=== PATIENT | male | born 1975 | race Caucasian/White ===

== ENCOUNTER → 2018-07-10 14:23 | Outpatient (CLI) | payer BC, SELFPAY ==
--- NOTE | 2018-07-10 14:28 | XR_ITS ---
XR chest 2V HISTORY: ITS.REASON: HX IMMUNOSUPRESSION THERAPY, STEROID THERAPY ORDERING PHYSICIAN: Guillermo Up PATIENT AGE: 42 years COMPARISON: None FINDINGS: The cardiomediastinal silhouette and pulmonary vascularity are within normal limits. The lungs are clear without infiltrates, suspicious nodules, or pleural effusions. No acute bony abnormalities. IMPRESSION: Negative chest, no acute finding
[2018-07-10 15:39] LABS: Basophils # 0.1 K/mm3 (0-0.2); Basophils % 0.6 % (0.1-2.0); Eosinophils # 0.3 K/mm3 (0.0-0.4); Eosinophils % 4.2 % (0.1-12.0); Hematocrit 46.8 % (42.0-52.0); Hemoglobin 15.7 g/dL (14.1-18.0); Lymphocytes # 2.1 K/mm3 (0.7-4.5); Lymphocytes % 29.1 % (10-50); Mean Corpuscular HGB Conc 33.6 g/dL (31.8-35.4); Mean Corpuscular Hemoglobin 28.2 pg (27.0-31.2); Mean Platelet Volume 7.4 fl (7.4-10.4); Monocytes # 0.4 K/mm3 (0.1-1.0); Monocytes % 4.8 % (1.7-9.3); Neutrophils # 4.5 K/mm3 (1.8-7.8); Neutrophils % 61.2 % (37.0-80.0); Platelet Count 303 K/mm3 (142-424); Red Blood Count 5.57 M/mm3 (4.60-6.20); Red Cell Distribution Width 12.9 % (11.5-17.5); White Blood Count 7.3 K/mm3 (4.8-10.8)
[2018-07-10 16:13] LABS: Alanine Aminotransferase 25 U/L (12-78); Albumin Level 3.7 gm/dL (3.4-5.0); Albumin/Globulin Ratio 0.9 (1.1-1.8); Alkaline Phosphatase 67 U/L (46-116); Anion Gap 12.7 mEq/L (5-15); Aspartate Amino Transferase 16 U/L (15-37); Bilirubin,Total 0.2 mg/dL (0.2-1.0); Blood Urea Nitrogen 10 mg/dL (7-18); Calcium 8.7 mg/dL (8.5-10.1); Carbon Dioxide 27 mmol/L (21.0-32.0); Chloride 105 mmol/L (98-107); Creatinine,Serum 0.88 mg/dL (0.70-1.30); Estimated Glomerular Filt Rate 95 ml/min (>60); GFR (African American) 115 ML/MIN (>60); Glucose 116 mg/dL (74-106); Potassium 3.7 mmoL/L (3.5-5.1); Sodium 141 mmol/L (136-145); Total Protein,Serum 7.7 gm/dL (6.4-8.2)
[2018-07-12 18:07] LABS: Hep A Ab, IgM Negative (Negative); Hepatitis B Core Antibody IgM Negative (Negative); Hepatitis B Surface Antigen Negative (Negative)
[2018-07-13 10:34] LABS: HIV Screen 4th Generation wRfx Non Reactive (Non Reactive); Hepatitis C Antibody <0.1 s/co ratio (0.0-0.9)
== END ==
PROVIDERS: Visit Provider Physician Assistant
DX: L40.0 Psoriasis vulgaris (principal); Z79.899 Other long term (current) drug therapy; Z92.25 Personal history of immunosuppression therapy
CPT/HCPCS: 36415; 71046; 80053; 80074; 85025; 86703; G0432

== ENCOUNTER → 2018-07-30 09:21 | Outpatient (CLI) | payer BC, SELFPAY ==
[2018-08-05 06:20] LABS: QuantiFERON-TB Gold Plus Negative (Negative)
== END ==
PROVIDERS: Visit Provider Physician Assistant
DX: L40.0 Psoriasis vulgaris (principal); Z79.899 Other long term (current) drug therapy; Z92.25 Personal history of immunosuppression therapy
CPT/HCPCS: 36415; 86480

== ENCOUNTER → 2019-07-26 16:55 | Outpatient (CLI) | payer OTHER, SELFPAY ==
--- NOTE | 2019-07-26 | XR_ITS ---
PROCEDURE: XR CHEST 2V CLINICAL HISTORY: Pretreatment for psoriasis medication COMPARISON: CXR CHEST(2 VIEWS-NOT PORTABLE) from 01/06/2014 CXR CHEST(2 VIEWS-NOT PORTABLE) from 06/02/2017 CXR2V XR chest 2V from 07/10/2018 FINDINGS: The cardiomediastinal silhouette and pulmonary vascularity are within normal limits. The lungs are clear without infiltrates, suspicious nodules, or pleural effusions. No acute bony abnormalities. IMPRESSION: No acute findings. Dictated by: Adrian Givens MD 07/27/2019 04:34 Electronically signed by Adrian Givens MD in [place] 07/27/2019 04:34
[2019-07-26 17:30] LABS: Basophils % 0.5 % (0.1-2.0); Eosinophils # 0.2 K/mm3 (0.0-0.4); Eosinophils % 2.9 % (0.1-12.0); Hematocrit 45.4 % (42.0-52.0); Hemoglobin 15.5 g/dL (14.1-18.0); Lymphocytes # 2.5 K/mm3 (0.7-4.5); Lymphocytes % 34.2 % (10-50); Mean Corpuscular HGB Conc 34.2 g/dL (31.8-35.4); Mean Corpuscular Hemoglobin 29.2 pg (27.0-31.2); Mean Corpuscular Volume 85.4 fl (80-94); Mean Platelet Volume 7.7 fl (7.4-10.4); Monocytes # 0.4 K/mm3 (0.1-1.0); Monocytes % 5.7 % (1.7-9.3); Neutrophils # 4.1 K/mm3 (1.8-7.8); Neutrophils % 56.6 % (37.0-80.0); Platelet Count 298 K/mm3 (142-424); Red Blood Count 5.32 M/mm3 (4.60-6.20); Red Cell Distribution Width 12.8 % (11.5-17.5); White Blood Count 7.2 K/mm3 (4.8-10.8)
[2019-07-26 19:25] LABS: Alanine Aminotransferase 22 U/L (12-78); Albumin Level 3.6 gm/dL (3.4-5.0); Albumin/Globulin Ratio 0.9 (1.1-1.8); Alkaline Phosphatase 69 U/L (46-116); Aspartate Amino Transferase 14 U/L (15-37); Bilirubin,Total 0.2 mg/dL (0.2-1.0); Blood Urea Nitrogen 12 mg/dL (7-18); Calcium 8.6 mg/dL (8.5-10.1); Carbon Dioxide 29 mmol/L (21.0-32.0); Chloride 103 mmol/L (98-107); Creatinine,Serum 0.86 mg/dL (0.70-1.30); Estimated Glomerular Filt Rate 98 ml/min (>60); GFR (African American) 118 ML/MIN (>60); Glucose 80 mg/dL (74-106); Sodium 141 mmol/L (136-145); Total Protein,Serum 7.6 gm/dL (6.4-8.2)
[2019-07-29 21:37] LABS: QuantiFERON-TB Gold Plus NEGATIVE
== END ==
PROVIDERS: Visit Provider Physician Assistant
DX: L40.0 Psoriasis vulgaris (principal)
CPT/HCPCS: 36415; 71046; 80053; 85025; 86480

== ENCOUNTER 2019-12-23 17:33 | Emergency (ER) | payer OTHER, SELFPAY ==
[2019-12-23 17:48] VITALS: BP 128/76; PULSE 110; RESP 20; TEMP 36.8; O2SAT 98; BMI 30.4
--- NOTE | 2019-12-23 17:55 | HMH.EDUTC ---
[facility] [place] Impression: Strep throat Disposition: Home, Self-Care Condition on Discharge: Good Instructions: Strep Throat, DI for Strep Throat Additional Instructions: Drink plenty of fluids. Take tylenol or ibuprofen for pain or fever. Take the medications as directed. Throw your tooth brush away and get a new one tomorrow. Follow up with your regular doctor. GO TO THE ER FOR ANY WORSENING SYMPTOMS Prescriptions: predniSONE [Deltasone 10mg tablet] 10 mg PO BID 3 Days #6 tab Transmission Status: Received by [employer] [id number] Referrals: Provider,Referral, [Primary Care Provider] - Time of Disposition: 18:05 Medical Decision Making - Medical Records Medical records reviewed: No: I reviewed the patient's medical records. - Gato Inquiry Pt receiving controlled substance: No Vital Signs: 12/23/19 17:48 12/23/19 18:20 Temperature 98.3 F 98.3 F Temperature Source Oral Pulse Rate 110 H Pulse Rate [Right Radial] 110 H Respiratory Rate 20 20 Blood Pressure 128/76 Blood Pressure [Right Arm] 128/76 Blood Pressure Mean [Right Arm] 93 Blood Pressure Source [Right Arm] Automatic Cuff Blood Pressure Position [Right Arm] Supine 02 Sat by Pulse Oximetry 98 Oxygen Delivery Method Room Air - Lab Data Lab results reviewed: Yes: I reviewed the patient's lab results. Lab Results 12/23/19 17:55: Influenza Type A Ag Negative, Influenza Type B Ag Negative 12/23/19 17:55: Strep Scn Rapid [facility] Positive A Orders (Tests/Meds): ED MEDICATIONS Discontinued Medications Generic Name Dose Route Start Last Admin Trade Name Freq PRN Reason Stop Dose Admin Penicillin G Benzathine 1,200,000 unit 12/23/19 18:01 12/23/19 18:10 Bicillin La 1,200,000 Units/2ml Syringe IM 12/23/19 18:02 1,200,000 unit ONCE ONE Administration Protocol [facility] - General Stated complaint: sore throat, pain Time Seen by Provider: 12/23/19 17:55 Mode of Arrival: Ambulatory Source of Information: Patient Limitations: No Limitations Description of Symptoms (Recalled from Triage Doc. by RN): PT C/O SORE THROAT AND CHILLS X1 DAY HEENT Symptoms (Recalled from RN notes): Yes (SORE THROAT, CHILLS) Resp Symptoms (Recalled from RN notes): No Skin Symptoms (Recalled from RN notes): No MS Symptoms (Recalled from RN notes): No Functional Status (Recalled from RN notes): N/A - History of Present Illness Provider Complaint: He c/o sore throat for the past 1 day. He has also been running a fever and chilling. He has not been coughing of having any congestion. - Related Data Previous Rx's Medication Instructions Recorded predniSONE [Deltasone 10mg tablet] 10 mg PO BID 3 Days #6 tab 12/23/19 Allergies Allergy/AdvReac Type Severity Reaction Status Date / Time No Known Allergies Allergy Unverified 07/29/17 14:31 - Worker's Comp Is this a Worker's Comp case?: No [facility] History - Hepatitis A Screen Drug use history?: No High risk sexual behaviors?: No History of sexually transmitted infection?: No Currently employed?: No Childcare worker?: No Do you have indoor plumbing?: Yes Do you have electricity?: Yes Attestation statement:: This patient has been screened for Hepatitis A risk factors. I have reviewed the patient's past medical history: Yes Medical History: Denies:: Diabetes Mellitus Type 1, Diabetes Mellitus Type 2 - Social History Smoking Status: Never smoker Alcohol Intake: never Occupational Status: employed ROS Obtained: Yes All systems reviewed & no additional complaints - Constitutional Constitutional: Reports chills, Reports fever(s), Reports poor appetite, Reports malaise - Eyes Eyes: Denies eye discharge - ENT Ears, Nose, Mouth, and Throat: Reports as per HPI - Cardiovascular Cardiovascular: Denies chest pain - Respiratory Respiratory: No chest congestion, No cough, No dyspnea, No coughing up blood, No stridor, No wheezing
[2019-12-23 18:12] LABS: UTC Strep Screen (Rapid) Positive (Negative)
[2019-12-23 18:14] LABS: UTC Influenza A Antigen Negative (Negative); UTC Influenza B Antigen Negative (Negative)
[2019-12-23 18:20] VITALS: BP 128/76; PULSE 110; RESP 20; TEMP 36.8; O2SAT 98
== END 2019-12-23 18:21 | disposition home or self-care (01) ==
PROVIDERS: Emergency Provider Nurse Practitioner Family
DX: J02.0 Streptococcal pharyngitis (principal)
CPT/HCPCS: 87804; 87880; 96372; 99202; J0561

== ENCOUNTER → 2020-03-23 15:10 | Outpatient (CLI) | payer OTHER, SELFPAY ==
[2020-03-23 15:57] LABS: Basophils % 0.4 % (0.1-2.0); Eosinophils # 0.2 K/mm3 (0.0-0.4); Eosinophils % 1.9 % (0.1-12.0); Hematocrit 43.8 % (42.0-52.0); Hemoglobin 15.1 g/dL (14.1-18.0); Lymphocytes # 2.2 K/mm3 (0.7-4.5); Lymphocytes % 22.2 % (10-50); Mean Corpuscular HGB Conc 34.5 g/dL (31.8-35.4); Mean Corpuscular Hemoglobin 29.5 pg (27.0-31.2); Mean Corpuscular Volume 85.4 fl (80-94); Mean Platelet Volume 7.7 fl (7.4-10.4); Monocytes # 0.5 K/mm3 (0.1-1.0); Monocytes % 4.9 % (1.7-9.3); Neutrophils # 6.9 K/mm3 (1.8-7.8); Neutrophils % 70.6 % (37.0-80.0); Platelet Count 302 K/mm3 (142-424); Red Blood Count 5.13 M/mm3 (4.60-6.20); Red Cell Distribution Width 13.5 % (11.5-17.5); White Blood Count 9.8 K/mm3 (4.8-10.8)
[2020-03-23 16:22] LABS: Chloride 108 mmol/L (98-107); Potassium 3.9 mmoL/L (3.5-5.1); Sodium 142 mmol/L (136-145)
[2020-03-23 16:25] LABS: Alanine Aminotransferase 22 U/L (12-78); Albumin Level 4.2 g/dl (3.5-5.0); Albumin/Globulin Ratio 1.3 (1.1-1.8); Alkaline Phosphatase 59 U/L (38-126); Anion Gap 14.9 mEq/L (5-15); Aspartate Amino Transferase 26 U/L (17-59); Bilirubin,Total 0.5 mg/dl (0.2-1.3); Blood Urea Nitrogen 12 mg/dl (9-20); Calcium 9.8 mg/dl (8.4-10.2); Carbon Dioxide 23 mmol/L (22.0-30.0); Estimated Glomerular Filt Rate 106 ml/min (>60); GFR (African American) 128 ML/MIN (>60); Globulin 3.3 g/dL (1.3-3.2); Glucose 125 mg/dl (74-100); Total Protein,Serum 7.5 g/dl (6.3-8.2)
== END ==
PROVIDERS: Visit Provider Physician Assistant
DX: L40.0 Psoriasis vulgaris (principal); L40.4 Guttate psoriasis; Z79.899 Other long term (current) drug therapy
CPT/HCPCS: 36415; 80053; 85025

== ENCOUNTER → 2020-10-16 08:21 | Outpatient (CLI) | payer OTHER, SELFPAY ==
[2020-10-16 08:46] LABS: Basophils % 0.6 % (0.1-2.0); Eosinophils # 0.3 K/mm3 (0.0-0.4); Eosinophils % 4.2 % (0.1-12.0); Hematocrit 46.7 % (42.0-52.0); Hemoglobin 15.6 g/dL (14.1-18.0); Lymphocytes # 2.5 K/mm3 (0.7-4.5); Lymphocytes % 34.1 % (10-50); Mean Corpuscular HGB Conc 33.3 g/dL (31.8-35.4); Mean Corpuscular Hemoglobin 28.5 pg (27.0-31.2); Mean Corpuscular Volume 85.5 fl (80-94); Mean Platelet Volume 7.5 fl (7.4-10.4); Monocytes # 0.4 K/mm3 (0.1-1.0); Monocytes % 4.9 % (1.7-9.3); Neutrophils # 4.1 K/mm3 (1.8-7.8); Neutrophils % 56.2 % (37.0-80.0); Platelet Count 284 K/mm3 (142-424); Red Blood Count 5.47 M/mm3 (4.60-6.20); Red Cell Distribution Width 13.3 % (11.5-17.5); White Blood Count 7.4 K/mm3 (4.8-10.8)
[2020-10-16 09:09] LABS: Chloride 108 mmol/L (98-107); Potassium 4.1 mmoL/L (3.5-5.1); Sodium 141 mmol/L (136-145)
[2020-10-16 09:12] LABS: Alanine Aminotransferase 22 U/L (12-78); Albumin Level 4.3 g/dl (3.5-5.0); Albumin/Globulin Ratio 1.3 (1.1-1.8); Alkaline Phosphatase 72 U/L (38-126); Anion Gap 12.1 mEq/L (5-15); Aspartate Amino Transferase 24 U/L (17-59); Bilirubin,Total 0.4 mg/dl (0.2-1.3); Blood Urea Nitrogen 12 mg/dl (9-20); Carbon Dioxide 25 mmol/L (22.0-30.0); Estimated Glomerular Filt Rate 106 ml/min (>60); GFR (African American) 128 ML/MIN (>60); Globulin 3.4 g/dL (1.3-3.2); Total Protein,Serum 7.7 g/dl (6.3-8.2)
[2020-10-16 09:13] LABS: Calcium 9.6 mg/dl (8.4-10.2); Glucose 109 mg/dl (74-100)
[2020-10-21 08:50] LABS: QuantiFERON-TB Gold Plus Negative (Negative)
== END ==
PROVIDERS: Visit Provider Physician Assistant
DX: L40.0 Psoriasis vulgaris (principal); Z79.899 Other long term (current) drug therapy
CPT/HCPCS: 36415; 80053; 85025; 86480

== ENCOUNTER 2021-03-13 12:15 | Emergency (ER) | payer OTHER, SELFPAY ==
[2021-03-13 12:16] VITALS: BP 162/101; PULSE 134; RESP 20; TEMP 38.2; O2SAT 95; BMI 29.9
--- NOTE | 2021-03-13 12:39 | HMH.EDUTC ---
[facility] – [place] Disposition Clinical Impression: Fever Qualifiers: Fever type: unspecified Qualified Code(s): R50.9 - Fever, unspecified Disposition: Home, Self-Care Condition on Discharge: Good Instructions: DI for Dehydration -- Adult, DI for Viral Syndrome, DI for Fever (Symptom) -- Adult Additional Instructions: Make sure that you are drinking plenty of fluids to keep yourself hydrated especially if you are working out in the sun and having fever Make sure to follow up with your Family Doctor for good work up and monitoring of you blood pressure and recheck Return if needed Straight to ER if any life threatening symptoms You were tested for today for COVID19 your test result should be back in the next 24-48 hours, you may call to the [facility] to see if your test results are back in the next 48 hours [phone] [facility] hours are 9am-9pm You was given a handout with instructions for Self Quarantine and Self isolation for while you wait on test results and what to do if they are positive If you are positive the Health Dept will be contacting you also Referrals: Blaine Abreu MD [Primary Care Provider] - As needed Forms: Work/School Release Medical Decision Making - Gato Inquiry Pt receiving controlled substance: No Gato was queried for this patient: No Vital Signs: 03/13/21 12:16 03/13/21 14:21 03/13/21 14:54 Temperature 100.7 F H 99.1 F 99.1 F Temperature Source Tympanic Tympanic Oral Pulse Rate 96 H Pulse Rate [Apical] 134 H 96 H Respiratory Rate 20 16 19 Blood Pressure 140/82 Blood Pressure [Right Arm] 162/101 H 140/82 Blood Pressure Mean [Right Arm] 121 101 Blood Pressure Source Automatic Cuff Blood Pressure Source [Right Arm] Automatic Cuff Automatic Cuff Blood Pressure Position Sitting Blood Pressure Position [Right Arm] Sitting Sitting 02 Sat by Pulse Oximetry 95 99 Oxygen Delivery Method Room Air Room Air Room Air Orders (Tests/Meds): ED MEDICATIONS Discontinued Medications Generic Name Dose Route Start Last Admin Trade Name Freq PRN Reason Stop Dose Admin Acetaminophen 650 mg 03/13/21 12:48 03/13/21 12:58 Acetaminophen 325mg Tab PO 03/13/21 12:49 650 mg ONCE ONE Administration Sodium Chloride 1,000 mls @ 999 mls/hr 03/13/21 12:45 03/13/21 12:58 Sod Chlor 0.9% 1000ml Bag IV 03/13/21 13:45 999 mls/hr .Q1H1M LENNIE Administration ORDERS Category Date Time Status Covid-19 Nasal PCR ([facility]) Routine Lab 03/13/21 11:25 Received Medical Decision Narrative: Discussed with patient and recommended transfer to the ED due to HR and blood pressure elevated and patient declined at this time States that he is not having any dizziness. denies headache and denies CP State that his mouth feels dry and he wanted to get checked for COVID Patient agreeable to getting IV fluids Patient states that he is feeling much better after fluids States that mouth no longer is feeling dry HR now [address] [facility] HPI - General Stated complaint: weakness Time Seen by Provider: 03/13/21 12:39 Mode of Arrival: Ambulatory Source of Information: Patient Limitations: No Limitations Description of Symptoms (Recalled from Triage Doc. by RN): dizziness, chills HEENT Symptoms (Recalled from RN notes): No Resp Symptoms (Recalled from RN notes): No Skin Symptoms (Recalled from RN notes): No MS Symptoms (Recalled from RN notes): No Functional Status (Recalled from RN notes): na - History of Present Illness Provider Complaint: Patient state that he worked out in the sun all weekend and thinks he got dehydrated States that he has been having a low grade fever, chills and body aches States that he has not been around anyone with COVID that he is aware of States that today he noticed he was still feeling achy and having chills while out in the sun and he wanted to come in and get checked - Related Data Previous Rx's Medication Instructions Recorded predniSONE [Deltasone 10mg tablet] 10 mg PO BID 3 Days #6
[2021-03-13 14:21] VITALS: BP 140/82; PULSE 96; RESP 16; TEMP 37.3; O2SAT 99
[2021-03-13 14:54] VITALS: BP 140/82; PULSE 96; RESP 19; TEMP 37.3; O2SAT 99
== END 2021-03-13 14:56 | disposition home or self-care (01) ==
PROVIDERS: Emergency Provider Nurse Practitioner; PCP Family Medicine
DX: U07.1 COVID-19 (principal)
CPT/HCPCS: 96365; 99202; G0463; U0003

== ENCOUNTER 2021-03-17 17:53 | Inpatient (IN) | payer OTHER, SELFPAY ==
[2021-03-17] VITALS (8 sets, daily range): BP systolic 107–163; BP diastolic 61–96; PULSE 81–140; RESP 16–42; TEMP 37–39.4; O2SAT 86–95; BMI 29.9
--- NOTE | 2021-03-17 | ECG_ITS ---
APPROVED REPORT Exam: Resting ECG HR:115 bpm ECG Measurements Heart Rate 115 AXES IL 148 P 38 QRSd 90 QRS 11 QT 316 T 44 QTc 437 Conclusion Sinus tachycardia Otherwise normal ECG Electronically signed by : Claude Minor MD 03/18/2021 08:46:15
--- NOTE | 2021-03-17 18:09 | XR_ITS ---
PROCEDURE INFORMATION: Exam: XR Chest Exam date and time: 03/17/2021 6:09 PM Age: 45 years old Clinical indication: Dyspnea and shortness of breath and other: Covid positive chest pain; Additional info: Dyspnea, covid+, cp TECHNIQUE: Imaging protocol: XR of the chest. Views: 1 view. COMPARISON: CR XR CHEST 2V 07/26/2019 5:09 PM FINDINGS: Airway: Patent Lungs: Bilateral perihilar haziness and streaky-like opacities. Mild segmental bronchial wall thickening. Bilateral perihilar and mid to basal predominant ground-glass and patchy airspace opacifications. Pleural spaces: Unremarkable. No pleural effusion. No pneumothorax. Heart/Mediastinum: Unremarkable. No cardiomegaly. Bones/joints: No acute skeletal abnormality or aggressive osseous lesion. IMPRESSION: Findings most compatible with bilateral moderate COVID-19 pneumonia in this patient with a positive history.
--- NOTE | 2021-03-17 18:10 | HMH.EDSOB ---
ED Disposition Clinical Impression: COVID-19 in immunocompromised patient, Pneumonia due to 2019 novel coronavirus, Hypoxia Disposition: Admitted as Observation Condition on Discharge: Serious Referrals: Blaine Abreu MD [Primary Care Provider] - - Critical Care Critical Care Time: No Attestation: On 03/17/21, the high probability of a clinically significant, sudden or life threatening deterioration of the following system(s) required my full and direct attention, intervention and personal management. The time I documented below is in addition to time spent performing reported procedures but includes the following listed in this critical care notation. Medical Decision Making - Medical Records Medical records reviewed: Yes: I reviewed the patient's medical records. - Gato Inquiry Pt receiving controlled substance: No Vital Signs: 03/17/21 17:53 03/17/21 17:54 03/17/21 18:00 Temperature 103 F H Temperature Source Oral Pulse Rate 140 H Pulse Rate [Radial] 139 H Respiratory Rate 42 H Blood Pressure 163/94 H Blood Pressure [Right Arm] 161/94 H Blood Pressure Mean [Right Arm] 116 Blood Pressure Position [Right Arm] Sitting 02 Sat by Pulse Oximetry 86 L 92 L 88 L Oxygen Delivery Method Room Air Nasal Cannula Room Air Oxygen Flow Rate (LPM) 6 03/17/21 18:30 Temperature Temperature Source Pulse Rate 122 H Pulse Rate [Radial] Respiratory Rate 36 H Blood Pressure 156/96 H Blood Pressure [Right Arm] Blood Pressure Mean [Right Arm] Blood Pressure Position [Right Arm] 02 Sat by Pulse Oximetry 95 Oxygen Delivery Method Nasal Cannula Oxygen Flow Rate (LPM) 6 - Lab Data Lab results reviewed: Yes: I reviewed the patient's lab results. Lab Results 03/17/21 18:16: WBC 6.2, RBC 5.47, Hgb 15.5, Hct 45.1, MCV 82.5, MCH 28.4, MCHC 34.4, RDW 13.6, Plt Count 187, MPV 8.3, Neut % (Auto) 86.9 H, Lymph % (Auto) 9.3 L, [place] % (Auto) 3.2, Eos % (Auto) 0.1, Baso % (Auto) 0.5, Neut # (Auto) 5.3, Lymph # (Auto) 0.6 L, [place] # (Auto) 0.2, Eos # (Auto) 0.0, Baso # (Auto) 0.0, Total Counted 100, Neutrophils % (Manual) 85 H, Lymphocytes % (Manual) 8 L, Monocytes % (Manual) 5, Eosinophils % (Manual) 2, Platelet Estimate Normal, RBC Morphology Normal 03/17/21 18:16: Sodium 137, Potassium 4.1, Chloride 104, Carbon Dioxide 25, Anion Gap 12.1, BUN 15, Creatinine 0.90, Estimated Creat Clear 140, Estimated GFR 92, Est GFR ( Amer) 111, Glucose 129 H, Calcium 8.5, Total Bilirubin 0.4, AST 53, ALT 24, Alkaline Phosphatase 64, NT-Pro-B Natriuret Pep < 11.1, Total Protein 7.6, Albumin 3.9, Globulin 3.7 H, Albumin/Globulin Ratio 1.1 03/17/21 18:16: Lactate 1.6 Result diagrams: 03/17/21 18:16 03/17/21 18:16 Orders (Tests/Meds): ED MEDICATIONS Generic Name Dose Route Start Last Admin Trade Name Freq PRN Reason Stop Dose Admin Sodium Chloride 1,000 mls @ 999 mls/hr 03/17/21 18:30 03/17/21 18:39 Sod Chlor 0.9% 1000ml Bag IV 03/17/21 19:30 999 mls/hr .Q1H1M LENNIE Administration Discontinued Medications Generic Name Dose Route Start Last Admin Trade Name Freq PRN Reason Stop Dose Admin Acetaminophen 1,000 mg 03/17/21 18:22 03/17/21 18:39 Acetaminophen 500mg Tab PO 03/17/21 18:23 1,000 mg ONCE ONE Administration Dexamethasone Sodium Phosphate 8 mg 03/17/21 18:08 03/17/21 18:20 Dexamethasone 4mg/Ml 1ml Vial IV 03/17/21 18:09 8 mg ONCE ONE Administration ORDERS Category Date Time Status Blood Culture Stat Micro 03/17/21 18:16 Received - Radiology Data #1 Image(s): Chest Image Reviewed: Yes I reviewed the patient's radiology results, Yes I reviewed the patient's radiology image, Yes I have reviewed radiologist's interpretation Preliminary Findings: Abnormal (Infiltrates consistent with COVID-19 pneumonia) - ECG Data Tracing #1 I reviewed this ECG and interpreted as documented below: Patient is ECG was done at 1909. It shows a sinus tachycar
[2021-03-17 18:27] LABS: Basophils % 0.5 % (0.1-2.0); Eosinophils % 0.1 % (0.1-12.0); Hematocrit 45.1 % (42.0-52.0); Hemoglobin 15.5 g/dL (14.1-18.0); Lymphocytes # 0.6 K/mm3 (0.7-4.5); Lymphocytes % 9.3 % (10-50); Mean Corpuscular HGB Conc 34.4 g/dL (31.8-35.4); Mean Corpuscular Hemoglobin 28.4 pg (27.0-31.2); Mean Corpuscular Volume 82.5 fl (80-94); Mean Platelet Volume 8.3 fl (7.4-10.4); Monocytes # 0.2 K/mm3 (0.1-1.0); Monocytes % 3.2 % (1.7-9.3); Neutrophils # 5.3 K/mm3 (1.8-7.8); Neutrophils % 86.9 % (37.0-80.0); Platelet Count 187 K/mm3 (142-424); Red Blood Count 5.47 M/mm3 (4.60-6.20); Red Cell Distribution Width 13.6 % (11.5-17.5); White Blood Count 6.2 K/mm3 (4.8-10.8)
[2021-03-17 18:30] LABS: MANUAL DIFFERENTIAL MANUAL DIFFERENTIAL (MANUAL DIFF)
[2021-03-17 18:39] LABS: Chloride 104 mmol/L (98-107); Potassium 4.1 mmoL/L (3.5-5.1); Sodium 137 mmol/L (136-145)
[2021-03-17 18:42] LABS: Alanine Aminotransferase 24 U/L (12-78); Albumin Level 3.9 g/dl (3.5-5.0); Albumin/Globulin Ratio 1.1 (1.1-1.8); Alkaline Phosphatase 64 U/L (38-126); Anion Gap 12.1 mEq/L (5-15); Aspartate Amino Transferase 53 U/L (17-59); Bilirubin,Total 0.4 mg/dl (0.2-1.3); Blood Urea Nitrogen 15 mg/dl (9-20); Calcium 8.5 mg/dl (8.4-10.2); Carbon Dioxide 25 mmol/L (22.0-30.0); Creatinine Clearance Estimated 140 mL/min (50-200); Estimated Glomerular Filt Rate 92 ml/min (>60); GFR (African American) 111 ML/MIN (>60); Globulin 3.7 g/dL (1.3-3.2); Glucose 129 mg/dl (74-100); Total Protein,Serum 7.6 g/dl (6.3-8.2)
[2021-03-17 18:43] LABS: Lactic Acid 1.6 mmol/L (0.7-2.1)
[2021-03-17 18:53] LABS: Eosinophils % 2 % (0-3); Lymphocytes % 8 % (10-50); Monocytes % 5 % (2-9); Neutrophils % 85 % (42-76); Platelet Estimate Normal; RBC Morphology Normal; Total Cells Counted 100
[2021-03-17 18:54] LABS: NT Pro Brain Natriuretic Pep. < 11.1 pg/mL (0-125)
--- NOTE | 2021-03-17 18:54 | PC.NURSE ---
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
[2021-03-17 21:41] LABS: Chloride 106 mmol/L (98-107); Potassium 4.1 mmoL/L (3.5-5.1); Sodium 136 mmol/L (136-145)
[2021-03-17 21:43] LABS: Blood Urea Nitrogen 13 mg/dl (9-20); Creatinine Clearance Estimated 158 mL/min (50-200); Estimated Glomerular Filt Rate 105 ml/min (>60); GFR (African American) 127 ML/MIN (>60)
[2021-03-17 21:44] LABS: Alanine Aminotransferase 22 U/L (12-78); Albumin Level 3.6 g/dl (3.5-5.0); Alkaline Phosphatase 63 U/L (38-126); Anion Gap 11.1 mEq/L (5-15); Aspartate Amino Transferase 51 U/L (17-59); Bilirubin,Total 0.4 mg/dl (0.2-1.3); Calcium 8.2 mg/dl (8.4-10.2); Carbon Dioxide 23 mmol/L (22.0-30.0); Globulin 3.6 g/dL (1.3-3.2); Glucose 133 mg/dl (74-100); Total Protein,Serum 7.2 g/dl (6.3-8.2)
[2021-03-18] VITALS (7 sets, daily range): BP systolic 131–167; BP diastolic 73–100; PULSE 78–110; RESP 20–24; TEMP 36.7–37.4; O2SAT 90–95; BMI 26.9
--- NOTE | 2021-03-18 03:54 | PC.NURSE ---
Pt arrived to floor on 6L O2 NC. Pt is currently on 3.5 L O2 NC with O2 sats of low to mid 90s. Pt has nonproductive cough. Denies any sob at this time. BS active. Pt states he has had diarrhea last 24hrs. None this shift. Was noted to be diaphoretic x1 this shift. He is currently afebrile at this time. BP is elevated. Pt states he doesn't have any history of HTN. Medications administered per mar/orders. Spoke with MD early in shift. New orders received. Will continue to monitor.
--- NOTE | 2021-03-18 08:02 | HMH.HP ---
*Admission Date: 03/17/21 *Chief complaint: Shortness of breath *History of present illness: 45 year old male who I saw one time in the office in early 2018, presented to [facility] ER yesterday with worsening shortness of breath and fever. Patient has been ill for about 9 days now and was diagnosed with Covid-19 on 03/13/[address] [facility] UTC. He states over the past week he has had problems with fever, headache, shortness of breath and non productive cough. He has not had a Covid-19 vaccination. He takes Skyrizi for psoriasis and his last dose was on 03/08/21. [facility] History Medical History: Denies:: Cancer, Chronic Obstructive Pulmonary Disease (COPD), Coronary Artery Disease, Diabetes Mellitus Type 1, Diabetes Mellitus Type 2, MRSA *Have you ever received a pneumonia vaccine?: No *Have you received a flu vaccine this season?: No Other Medical History: Reports: Other (Psoriasis) Other Surgeries: Yes: No Previous Surgery Amputation: No Fractures: Yes ((R) wrist) - *Social History Smoking Status: Never smoker Alcohol Intake: never *Occupational Status:: employed *Travel in the last 8 weeks: None Family Hx:: No significant family history Review of Systems - Constitutional Reports chills, Reports fever(s) - Eyes Denies blurry vision - ENT Denies nosebleed - *Cardiovascular Denies chest pain - *Respiratory Reports cough - *Gastrointestinal Denies abdominal pain - *Genitourinary Denies difficulty urinating - *Musculoskeletal Denies joint pain - Integumentary/Breasts Denies yellowing of the skin - *Neurologic Reports headache(s) - Psychiatric Denies anxiety Meds Home Medications Medication Instructions Recorded Confirmed Type Risankizumab-Rzaa [Skyrizi (2 150 mg SQ DIRECTED 03/17/21 03/17/21 History Syringes) Kit] Allergies Allergy/AdvReac Type Severity Reaction Status Date / Time No Known Allergies Allergy Unverified 07/29/17 14:31 Exam Vital signs and Labs for Last 24 Hours: Temp Pulse Resp BP Pulse Ox 98.7 F 92 H 24 149/99 H 91 L 03/18/21 07:53 03/18/21 07:53 03/18/21 07:53 03/18/21 07:53 03/18/21 07:53 Laboratory Results - last 24 hr 03/17/21 18:16: WBC 6.2, RBC 5.47, Hgb 15.5, Hct 45.1, MCV 82.5, MCH 28.4, MCHC 34.4, RDW 13.6, Plt Count 187, MPV 8.3, Neut % (Auto) 86.9 H, Lymph % (Auto) 9.3 L, [place] % (Auto) 3.2, Eos % (Auto) 0.1, Baso % (Auto) 0.5, Neut # (Auto) 5.3, Lymph # (Auto) 0.6 L, [place] # (Auto) 0.2, Eos # (Auto) 0.0, Baso # (Auto) 0.0, Total Counted 100, Neutrophils % (Manual) 85 H, Lymphocytes % (Manual) 8 L, Monocytes % (Manual) 5, Eosinophils % (Manual) 2, Platelet Estimate Normal, RBC Morphology Normal 03/17/21 18:16: Sodium 137, Potassium 4.1, Chloride 104, Carbon Dioxide 25, Anion Gap 12.1, BUN 15, Creatinine 0.90, Estimated Creat Clear 140, Estimated GFR 92, Est GFR ( Amer) 111, Glucose 129 H, Calcium 8.5, Total Bilirubin 0.4, AST 53, ALT 24, Alkaline Phosphatase 64, NT-Pro-B Natriuret Pep < 11.1, Total Protein 7.6, Albumin 3.9, Globulin 3.7 H, Albumin/Globulin Ratio 1.1 03/17/21 18:16: Lactate 1.6 03/17/21 21:32: Sodium 136, Potassium 4.1, Chloride 106, Carbon Dioxide 23, Anion Gap 11.1, BUN 13, Creatinine 0.80, Estimated Creat Clear 158, Estimated GFR 105, Est GFR ( Amer) 127, Glucose 133 H, Calcium 8.2 L, Total Bilirubin 0.4, AST 51, ALT 22, Alkaline Phosphatase 63, Total Protein 7.2, Albumin 3.6, Globulin 3.6 H, Albumin/Globulin Ratio 1.0 L Vital Signs - 24 hr 03/17/21 17:53 03/17/21 17:54 03/17/21 18:00 Temperature 103 F H Pulse Rate 140 H Pulse Rate [Radial] 139 H Respiratory Rate 42 H Blood Pressure 163/94 H Blood Pressure [Right Arm] 161/94 H 02 Sat by Pulse Oximetry 86 L 92 L 88 L 03/17/21 18:30 03/17/21 19:50 03/17/21 20:00 Temperature 101.7 F H 99.8 F H Pulse Rate 122 H 102 H Pulse Rate [Radial] 101 H Respiratory Rate 36 H 36 H 16 Blood Pressure 156/96 H 107/61 L Blood Pressure [Right Arm] 128/76 02 S
--- NOTE | 2021-03-18 09:21 | P.CONPHA_ITS ---
[facility] Pharmacy VTE Monitoring - Patient Demographics Admission date: 03/17/21 Report Date: 03/18/21 Time: 09:21 Allergies/Adverse Reactions: Patient Allergies No Known Allergies Allergy (Unverified 07/29/17 14:31) Height: 1.78 m Weight: 85.304 kg Patient Problems: Current Active Problems Fever (Acute) COVID-19 in immunocompromised patient (Acute) Pneumonia due to 2019 novel coronavirus (Acute) Hypoxia (Acute) Psoriasis (Acute) - VTE Risk Labs: VTE Related Lab Results Hgb 15.5 g/dL (14.1-18.0) 03/17/21 18:16 Hct 45.1 % (42.0-52.0) 03/17/21 18:16 Plt Count 187 K/mm3 (142-424) 03/17/21 18:16 BUN 13 mg/dl (9-20) 03/17/21 21:32 Creatinine 0.80 mg/dl (0.66-1.25) 03/17/21 21:32 Estimated Creat Clear 158 mL/min (50-200) 03/17/21 21:32 Was VTE Risk Assessment Performed: Yes VTE Risk Level: Moderate Risk - Prophylaxis VTE Prophylaxis Ordered?: Yes Types of VTE Prophylaxis: TEDS Knee High Location of Applied Device: Bilateral Lower Extremeties Pharmacologic Type: Enoxaparin
--- NOTE | 2021-03-18 09:21 | HMH.PHAINT ---
MEDICATION RECONCILIATION COMPLETE USING EXTERNAL PHARMACY FILL HISTORY.
--- NOTE | 2021-03-18 10:00 | PC.NURSE ---
PT IS RESTING IN BED. NO COMPLAINTS OF DISCOMFORT. PT STATES HE ONLY FEELS SOA WHEN HE COUGHS. PT STATES HE HAS NOT HAD MUCH OF AN APPETITE FOR SEVERAL DAYS BUT HAS BEEN DRINKING OKAY. LUNG SOUNDS HAVE BILATERAL CRACKLES. ABDOMEN SOFT/NON TENDER WITH ACTIVE BOWEL SOUNDS. NO SWELLING NOTED TO BLE. USING THE URINAL TO VOID. IV ACCESS NOTED TO LAC INFUSING NS @ 100. O2 SATURATION MAINTAINING 92-94% ON 3.5 L NC. WILL CONTINUE TO MONITOR.
--- NOTE | 2021-03-18 21:39 | PC.NURSE ---
notified of HTN. Pt asymptomatic at this time. No new orders.
[2021-03-19] VITALS (11 sets, daily range): BP systolic 140–160; BP diastolic 90–101; PULSE 89–103; RESP 19–24; TEMP 36.4–37.4; O2SAT 89–94; BMI 27.0; BMI 27.1
--- NOTE | 2021-03-19 03:14 | PC.NURSE ---
Pt has slept at intervals this shift. Productive cough noted this AM. Pt stated he has coughed up stuff twice. During coughing episodes, pt noted to desat low to mid 80s. Recovery slow at times. Lungs noted to have crackles t/o bilateral bases. O2 was titrated from 3.5 L to 4L O2 NC this AM. Pt encouraged to sleep in prone position this AM. After pt repositioning, O2 sats have improved and is currently 93%. Will continue to monitor.
--- NOTE | 2021-03-19 05:46 | PC.NURSE ---
Pt remains on 4L O2 NC at this time. AM labs obtained. Pt placed back in prone position. O2 sats currently 91-92%
[2021-03-19 06:08] LABS: Chloride 109 mmol/L (98-107)
[2021-03-19 06:09] LABS: Sodium 139 mmol/L (136-145)
[2021-03-19 06:11] LABS: Alanine Aminotransferase 30 U/L (12-78); Aspartate Amino Transferase 52 U/L (17-59); Blood Urea Nitrogen 14 mg/dl (9-20); Creatinine Clearance Estimated 191 mL/min (50-200); Estimated Glomerular Filt Rate 146 ml/min (>60); GFR (African American) 177 ML/MIN (>60)
[2021-03-19 06:12] LABS: Albumin Level 3.3 g/dl (3.5-5.0); Alkaline Phosphatase 57 U/L (38-126); Bilirubin,Direct 0.3 mg/dl (0.0-0.4); Bilirubin,Total 0.3 mg/dl (0.2-1.3); Calcium 8.1 mg/dl (8.4-10.2); Carbon Dioxide 24 mmol/L (22.0-30.0); Glucose 134 mg/dl (74-100); Total Protein,Serum 6.7 g/dl (6.3-8.2)
--- NOTE | 2021-03-19 08:17 | HMH.ACPN2 ---
Internal Medicine - PN: Subj *Date: 03/19/21 *Time: 08:51 Interval history: Patient with no new complaints today. Nurse reported patient's BP was elevated overnight. Exam Vital signs and Labs for Last 24 Hours: Temp Pulse Resp BP Pulse Ox 98.2 F 100 H 21 141/92 H 91 L 03/19/21 07:58 03/19/21 07:58 03/19/21 07:58 03/19/21 07:58 03/19/21 07:58 Laboratory Results - last 24 hr 03/19/21 05:40: Sodium 139, Potassium 4.0, Chloride 109 H, Carbon Dioxide 24, Anion Gap 10.0, BUN 14, Creatinine 0.60 L D, Estimated Creat Clear 191, Estimated GFR 146, Est GFR ( Amer) 177 D, Glucose 134 H, Calcium 8.1 L, Total Bilirubin 0.3, Direct Bilirubin 0.3, Conjugated Bilirubin 0.0, Indirect Bilirubin 0.0, Unconjugated Bilirubin 0.0, AST 52, ALT 30 D, Alkaline Phosphatase 57, Total Protein 6.7, Albumin 3.3 L Vital Signs - 24 hr 03/18/21 12:00 03/18/21 16:00 03/18/21 20:00 Temperature 98.6 F 99.1 F 99.4 F Pulse Rate [Radial] 98 H 110 H 93 H Respiratory Rate 22 20 20 Blood Pressure [Right Arm] 149/91 H 131/73 167/98 H 02 Sat by Pulse Oximetry 92 L 90 L 93 L 03/18/21 21:39 03/19/21 00:00 03/19/21 04:00 Temperature 99.4 F 99.4 F Pulse Rate [Radial] 104 H 103 H 93 H Respiratory Rate 19 19 Blood Pressure [Right Arm] 153/100 H 153/94 H 142/93 H 02 Sat by Pulse Oximetry 90 L 94 L 03/19/21 07:55 03/19/21 07:58 Temperature 98.2 F Pulse Rate [Radial] 100 H Respiratory Rate 21 Blood Pressure [Right Arm] 141/92 H 02 Sat by Pulse Oximetry 90 L 91 L I & O for Last 24 hours: Intake & Output 03/16/21 03/17/21 03/18/21 03/19/21 23:59 23:59 23:59 23:59 Intake Total 1000 / 1000 1200 / 1200 Output Total 825 / 825 500 / 500 Balance 1000 / 1000 375 / 375 -500 / -500 Weight 209 lb 188 lb 1 oz 189 lb Microbiology Reports for the Last 24 Hours: Microbiology 03/17/21 12:05 Sputum - Expectorated Sputum Gram Stain - Final - Constitutional no acute distress - *Routine HEENT Exam Head: Present: normocephalic Eye: Present: EOMI, PERRL ENT: Present: mucous membranes moist - *Routine Neck Exam Present: supple. Absent: lymphadenopathy - *Routine Respiratory Exam Present: crackles (bilateral) - *Routine Cardiovascular Exam Present: RRR - *Routine Abdominal Exam Present: soft, normoactive bowel sounds. Absent: tenderness - *Routine Extremities Exam Absent: cyanosis, clubbing, edema - *Routine Skin Exam Present: warm. Absent: rash - *Routine Neurological Exam Present: alert, oriented X3 Assessment and Plan (1) COVID-19 in immunocompromised patient Status: Acute Category: Medical Code(s): U07.1 - COVID-19; D84.9 - Immunodeficiency, unspecified (2) Hypoxia Status: Acute Category: Medical Code(s): R09.02 - Hypoxemia (3) Pneumonia due to 2019 novel coronavirus Status: Acute Category: Medical Code(s): U07.1 - COVID-19; J12.82 - Pneumonia due to coronavirus disease 2019 (4) Psoriasis Status: Acute Category: Medical Code(s): L40.9 - Psoriasis, unspecified (5) Fever Status: Acute Qualifiers: Fever type: unspecified Qualified Code(s): R50.9 - Fever, unspecified Category: Medical Code(s): R50.9 - Fever, unspecified (6) Elevated blood pressure reading Status: Acute Category: Medical Code(s): R03.0 - Elevated blood-pressure reading, without diagnosis of hypertension - Assessment and plan all Dx Assessment and Plan for all problems:: Pt afebrile the past 24 hours. Plan to saline lock IVF today and start Lisinopril
--- NOTE | 2021-03-19 14:43 | PC.NURSE ---
PT IS RESTING IN BED. NO COMPLAINTS OF DISCOMFORT. PT AMBULATED TO THE BATHROOM ON 4 L NC. WHEN PT WAS IN THE BATHROOM HE COUGHED CONTINUOUSLY AND BECAME VERY SOA. WHEN PT GOT BACK TO THE BED 02 SATURATION WAS 78%. OXYGEN WAS INCREASED FROM 4-5L FOR A SHORT PERIOD. WHEN PT IS RESTING IN PRONE POSITION O2 SATURATION HAS BEEN 93-95% ON 4 L . PT IS RESTING ON HIS BACK AT THIS TIME ON 4 L WITH AN O2 SATURATION 89-91% BUT IS NOT IN ANY DISTRESS. PT STATES HE ONLY FEELS SOA WHEN HE DOES COUGH. LUNG SOUNDS DIMINISHED WITH BILATERAL CRACKLES. ABDOMEN SOFT/NON TENDER WITH ACTIVE BOWEL SOUNDS. EATING AND DRINKING FAIR. WILL CONTINUE TO MONITOR.
--- NOTE | 2021-03-19 18:28 | PC.NURSE ---
DURING DINNER PT STARTED TO DESAT TO THE MID 80'S AND REQUIRED THE NON REBREATHER TO GET O2 SATURATIONS >90%. WHEN O2 SATURATION GOT TO 95% PT WAS PUT BACK ON 5 L NC. O2 SATURATION 90-91% AT REST ON 5 L. WILL CONTINUE TO MONITOR.
[2021-03-20] VITALS (7 sets, daily range): BP systolic 139–155; BP diastolic 90–104; PULSE 84–100; RESP 20–24; TEMP 36.2–37.1; O2SAT 89–94
[2021-03-20 07:46] LABS: Chloride 109 mmol/L (98-107); Potassium 4.6 mmoL/L (3.5-5.1); Sodium 141 mmol/L (136-145)
[2021-03-20 07:48] LABS: Blood Urea Nitrogen 17 mg/dl (9-20); Creatinine Clearance Estimated 191 mL/min (50-200); Estimated Glomerular Filt Rate 146 ml/min (>60); GFR (African American) 177 ML/MIN (>60)
[2021-03-20 07:49] LABS: Alanine Aminotransferase 30 U/L (12-78); Albumin Level 3.2 g/dl (3.5-5.0); Alkaline Phosphatase 61 U/L (38-126); Anion Gap 9.6 mEq/L (5-15); Aspartate Amino Transferase 51 U/L (17-59); Bilirubin,Direct 0.4 mg/dl (0.0-0.4); Bilirubin,Total 0.4 mg/dl (0.2-1.3); Calcium 8.2 mg/dl (8.4-10.2); Carbon Dioxide 27 mmol/L (22.0-30.0); Glucose 118 mg/dl (74-100); Total Protein,Serum 6.6 g/dl (6.3-8.2)
--- NOTE | 2021-03-20 09:08 | HMH.ACPN2 ---
Internal Medicine - PN: Subj *Date: 03/20/21 *Time: 09:08 Interval history: Patient reports getting more short of breath when he tries to eat and when he walked last night. Nurses report patient had to use a non rebreather mask after those activities due to hypoxia. Sats have stayed around 90% overnight on 5 L/min per NC. Exam Vital signs and Labs for Last 24 Hours: Temp Pulse Resp BP Pulse Ox 97.8 F 100 H 20 145/101 H 90 L 03/20/21 08:00 03/20/21 08:00 03/20/21 08:00 03/20/21 08:00 03/20/21 08:00 Laboratory Results - last 24 hr 03/20/21 06:23: Sodium 141, Potassium 4.6, Chloride 109 H, Carbon Dioxide 27, Anion Gap 9.6, BUN 17, Creatinine 0.60 L, Estimated Creat Clear 191, Estimated GFR 146, Est GFR ( Amer) 177, Glucose 118 H, Calcium 8.2 L, Total Bilirubin 0.4, Direct Bilirubin 0.4, Conjugated Bilirubin 0.0, Indirect Bilirubin 0.0, Unconjugated Bilirubin 0.0, AST 51, ALT 30, Alkaline Phosphatase 61, Total Protein 6.6, Albumin 3.2 L Vital Signs - 24 hr 03/19/21 10:03 03/19/21 11:34 03/19/21 15:44 Temperature 97.6 F 98.3 F Pulse Rate [Radial] 89 90 Pulse Rate [Right Radial] Respiratory Rate 22 20 Blood Pressure [Right Arm] 140/90 156/95 H 02 Sat by Pulse Oximetry 92 L 93 L 89 L 03/19/21 15:45 03/19/21 18:35 03/19/21 20:00 Temperature 98.5 F Pulse Rate [Radial] 100 H Pulse Rate [Right Radial] Respiratory Rate 24 Blood Pressure [Right Arm] 160/101 H 02 Sat by Pulse Oximetry 89 L 91 L 90 L 03/20/21 00:00 03/20/21 04:00 03/20/21 08:00 Temperature 98.8 F 98.3 F 97.8 F Pulse Rate [Radial] 86 84 Pulse Rate [Right Radial] 100 H Respiratory Rate 20 20 20 Blood Pressure [Right Arm] 155/102 H 149/93 H 145/101 H 02 Sat by Pulse Oximetry 90 L 90 L 90 L I & O for Last 24 hours: Intake & Output 03/17/21 03/18/21 03/19/21 03/20/21 23:59 23:59 23:59 23:59 Intake Total 1000 / 1000 1200 / 1200 900 / 900 Output Total 825 / 825 500 / 950 450 / 450 Balance 1000 / 1000 375 / 375 400 / -50 -450 / -450 Weight 209 lb 188 lb 1 oz 189 lb 9.561 oz Microbiology Reports for the Last 24 Hours: Microbiology 03/17/21 18:16 Blood Blood Culture - Preliminary NO GROWTH AFTER 48 HOURS 03/17/21 18:16 Blood Blood Culture - Preliminary NO GROWTH AFTER 48 HOURS - Constitutional no acute distress - *Routine HEENT Exam Head: Present: normocephalic Eye: Present: EOMI, PERRL ENT: Present: mucous membranes moist - *Routine Neck Exam Present: supple. Absent: lymphadenopathy - *Routine Respiratory Exam Present: crackles (bilateral) - *Routine Cardiovascular Exam Present: RRR - *Routine Abdominal Exam Present: soft, normoactive bowel sounds. Absent: tenderness - *Routine Extremities Exam Absent: cyanosis, clubbing, edema - *Routine Skin Exam Present: warm. Absent: rash - *Routine Neurological Exam Present: alert, oriented X3 Assessment and Plan (1) COVID-19 in immunocompromised patient Status: Acute Category: Medical Code(s): U07.1 - COVID-19; D84.9 - Immunodeficiency, unspecified (2) Hypoxia Status: Acute Category: Medical Code(s): R09.02 - Hypoxemia (3) Pneumonia due to 2019 novel coronavirus Status: Acute Category: Medical Code(s): U07.1 - COVID-19; J12.82 - Pneumonia due to coronavirus disease 2019 (4) Psoriasis Status: Acute Category: Medical Code(s): L40.9 - Psoriasis, unspecified (5) Fever Status: Acute Qualifiers: Fever type: unspecified Qualified Code(s): R50.9 - Fever, unspecified Category: Medical Code(s): R50.9 - Fever, unspecified (6) Elevated blood pressure reading Status: Acute Category: Medical Code(s): R03.0 - Elevated blood-pressure reading, without diagnosis of hypertension - Assessment and plan all Dx Assessment and Plan for all problems:: Patient afebrile the past 24 hours, continue current treatment. Add tatianai
--- NOTE | 2021-03-20 09:13 | XR_ITS ---
PROCEDURE: XR CHEST PORTABLE CLINICAL HISTORY: pneumonia, Covid-19 Follow-up COMPARISON: CR CXR2V XR chest 2V from 07/10/2018 CR XR CHEST 2V from 07/26/2019 CR XR CHEST PORTABLE from 03/17/2021 FINDINGS: The cardiomediastinal silhouette and pulmonary vascularity are within normal limits. Multi focal bilateral pneumonia is once again noted and appears slightly worse. No obvious effusion or pneumothorax. No acute bony abnormalities. IMPRESSION: Slight worsening multifocal bilateral pneumonia Dictated by: Adrian Givens MD 03/20/2021 09:52 Adrian Givens MD in [facility] 03/20/2021 09:52
--- NOTE | 2021-03-20 16:48 | PC.NURSE ---
Pt has been pleasant and cooperative this shift. A&O X4. No complaints of pain. Pt is currently receiving O2 via NC @ 6 LPM with sats. >90%. Pt de-sats. to 75-80% with any sort of activity/exertion and reports extreme SOA. Once resting, pt takes about 10 minutes to recover. Lung sounds reveal crackles. No edema noted. Skin is C/D/I. Pt ambulates independently. Urine is clear and shantel. 1 large, soft, brown stool this shift. Appetite is good and pt eats about 50-75% of all meals. Pt turns/repositions and lies prone as tolerated. 20 G peripheral IV in the LT AC is patent and SL. B/P has been consistently elevated today. Other VSS. Call light within reach. Will continue to monitor.
[2021-03-21] VITALS (9 sets, daily range): BP systolic 140–156; BP diastolic 82–104; PULSE 57–97; RESP 20–25; TEMP 36.5–37.1; O2SAT 88–96; BMI 26.6
--- NOTE | 2021-03-21 03:49 | PC.NURSE ---
A&OX4. TOLERATING 5LNC T/O SHIFT, O2 SAT 90%. PT IS UP INDEPENDENTLY IN ROOM. PT HAS HAD NO C/O THUS FAR. SLIGHT NON-PRODUCTIVE INTERMITTENT COUGH PRESENT. RESTING WELL T/O NIGHT. PT GAVE HIMSELF A BATH THIS SHIFT, TOLERATED WELL. VSS WILL CONTINUE TO MONITOR.
[2021-03-21 06:36] LABS: Chloride 108 mmol/L (98-107); Potassium 4.2 mmoL/L (3.5-5.1); Sodium 142 mmol/L (136-145)
[2021-03-21 06:38] LABS: Bilirubin,Unconjugated 0.1 mg/dL (0.0-1.1); Blood Urea Nitrogen 20 mg/dl (9-20); Creatinine Clearance Estimated 161 mL/min (50-200); Estimated Glomerular Filt Rate 123 ml/min (>60); GFR (African American) 148 ML/MIN (>60)
[2021-03-21 06:39] LABS: Alanine Aminotransferase 57 U/L (12-78); Albumin Level 3.3 g/dl (3.5-5.0); Alkaline Phosphatase 64 U/L (38-126); Anion Gap 11.2 mEq/L (5-15); Aspartate Amino Transferase 56 U/L (17-59); Bilirubin,Direct 0.5 mg/dl (0.0-0.4); Bilirubin,Indirect 0.1 mg/dL (0.0-0.9); Bilirubin,Total 0.6 mg/dl (0.2-1.3); Calcium 8.4 mg/dl (8.4-10.2); Carbon Dioxide 27 mmol/L (22.0-30.0); Glucose 128 mg/dl (74-100); Total Protein,Serum 6.9 g/dl (6.3-8.2)
[2021-03-21 08:26] LABS: Basophils # 0.1 K/mm3 (0-0.2); Basophils % 0.6 % (0.1-2.0); Hematocrit 44.2 % (42.0-52.0); Lymphocytes # 0.9 K/mm3 (0.7-4.5); Lymphocytes % 7.9 % (10-50); Mean Corpuscular HGB Conc 33.9 g/dL (31.8-35.4); Mean Corpuscular Hemoglobin 28.3 pg (27.0-31.2); Mean Corpuscular Volume 83.7 fl (80-94); Mean Platelet Volume 8.4 fl (7.4-10.4); Monocytes # 0.6 K/mm3 (0.1-1.0); Monocytes % 5.7 % (1.7-9.3); Neutrophils # 9.3 K/mm3 (1.8-7.8); Neutrophils % 85.7 % (37.0-80.0); Platelet Count 351 K/mm3 (142-424); Red Blood Count 5.28 M/mm3 (4.60-6.20); Red Cell Distribution Width 13.5 % (11.5-17.5); White Blood Count 10.8 K/mm3 (4.8-10.8)
[2021-03-21 08:31] LABS: MANUAL DIFFERENTIAL MANUAL DIFFERENTIAL (MANUAL DIFF)
[2021-03-21 08:57] LABS: Lymphocytes % 7 % (10-50); Monocytes % 6 % (2-9); Neutrophils % 87 % (42-76); Platelet Estimate Normal; Total Cells Counted 100
--- NOTE | 2021-03-21 09:07 | HMH.ACPN2 ---
Internal Medicine - PN: Subj *Date: 03/21/21 *Time: 09:07 Interval history: Patient still complains of SOB with any activity at all, needs O2 via 100% NRB mask to recover sats. Exam Vital signs and Labs for Last 24 Hours: Temp Pulse Resp BP Pulse Ox 98.2 F 86 24 143/91 H 90 L 03/21/21 08:00 03/21/21 08:00 03/21/21 08:00 03/21/21 08:00 03/21/21 08:00 Laboratory Results - last 24 hr 03/21/21 05:35: Sodium 142, Potassium 4.2, Chloride 108 H, Carbon Dioxide 27, Anion Gap 11.2, BUN 20, Creatinine 0.70, Estimated Creat Clear 161, Estimated GFR 123, Est GFR ( Amer) 148, Glucose 128 H, Calcium 8.4, Total Bilirubin 0.6, Direct Bilirubin 0.5 H, Conjugated Bilirubin 0.0, Indirect Bilirubin 0.1, Unconjugated Bilirubin 0.1, AST 56, ALT 57 D, Alkaline Phosphatase 64, Total Protein 6.9, Albumin 3.3 L 03/21/21 05:35: WBC 10.8, RBC 5.28, Hgb 15.0, Hct 44.2, MCV 83.7, MCH 28.3, MCHC 33.9, RDW 13.5, Plt Count 351 D, MPV 8.4, Neut % (Auto) 85.7 H, Lymph % (Auto) 7.9 L, [place] % (Auto) 5.7, Eos % (Auto) 0.0 L, Baso % (Auto) 0.6, Neut # (Auto) 9.3 H, Lymph # (Auto) 0.9, [place] # (Auto) 0.6, Eos # (Auto) 0.0, Baso # (Auto) 0.1, Total Counted 100, Neutrophils % (Manual) 87 H, Lymphocytes % (Manual) 7 L, Monocytes % (Manual) 6, Platelet Estimate Normal Vital Signs - 24 hr 03/20/21 12:00 03/20/21 16:00 03/20/21 17:51 Temperature 97.1 F L 98.2 F Pulse Rate [Apical] Pulse Rate [Right Radial] 88 93 H Respiratory Rate 22 22 Blood Pressure [Right Arm] 154/104 H 153/99 H 02 Sat by Pulse Oximetry 94 L 90 L 89 L 03/20/21 20:00 03/21/21 00:00 03/21/21 03:48 Temperature 98.3 F 98.2 F 98.0 F Pulse Rate [Apical] 86 61 90 Pulse Rate [Right Radial] Respiratory Rate 24 22 24 Blood Pressure [Right Arm] 139/90 145/82 H 146/92 H 02 Sat by Pulse Oximetry 90 L 92 L 88 L 03/21/21 08:00 Temperature 98.2 F Pulse Rate [Apical] Pulse Rate [Right Radial] 86 Respiratory Rate 24 Blood Pressure [Right Arm] 143/91 H 02 Sat by Pulse Oximetry 90 L I & O for Last 24 hours: Intake & Output 03/18/21 03/19/21 03/20/21 03/21/21 23:59 23:59 23:59 23:59 Intake Total 1200 / 1200 900 / 900 1180 / 1180 Output Total 825 / 825 500 / 950 1950 / 2150 200 / 200 Balance 375 / 375 400 / -50 -770 / -970 -200 / -200 Weight 188 lb 1 oz 189 lb 9.561 oz 186 lb 6 oz Microbiology Reports for the Last 24 Hours: Microbiology 03/17/21 12:05 Sputum - Expectorated Sputum Gram Stain - Final 03/17/21 12:05 Sputum - Expectorated Sputum Sputum Culture - Preliminary - Constitutional no acute distress - *Routine HEENT Exam Head: Present: normocephalic Eye: Present: EOMI, PERRL ENT: Present: mucous membranes moist - *Routine Neck Exam Present: supple. Absent: lymphadenopathy - *Routine Respiratory Exam Present: crackles (bilateral, increased today) - *Routine Cardiovascular Exam Present: RRR - *Routine Abdominal Exam Present: soft, normoactive bowel sounds. Absent: tenderness - *Routine Extremities Exam Absent: cyanosis, clubbing, edema - *Routine Skin Exam Present: warm. Absent: rash - *Routine Neurological Exam Present: alert, oriented X3 Assessment and Plan (1) COVID-19 in immunocompromised patient Status: Acute Category: Medical Code(s): U07.1 - COVID-19; D84.9 - Immunodeficiency, unspecified (2) Hypoxia Status: Acute Category: Medical Code(s): R09.02 - Hypoxemia (3) Pneumonia due to 2019 novel coronavirus Status: Acute Category: Medical Code(s): U07.1 - COVID-19; J12.82 - Pneumonia due to coronavirus disease 2019 (4) Psoriasis Status: Acute Category: Medical Code(s): L40.9 - Psoriasis, unspecified (5) Fever Status: Acute Qualifiers: Fever type: unspecified Qualified Code(s): R50.9 - Fever, unspecified Category: Medical Code(s): R50.9 - Fever, unspecified (6) Elevated blood pressure reading Status: Acute Category: Medical Code(s): R03.0 - Elevated
--- NOTE | 2021-03-21 10:03 | DIET.NUTRFU ---
Addendum entered by Blanca Castellanos 03/26/21 09:18: PO intakes improved-100%, weight stable, bowels normal. Energy/fluid intake adequate, supplement and gatorade removed from order at this time. Continuing to monitor. Addendum entered by Blanca Castellanos 03/23/21 16:43: PO intakes 75-100%, BG ~115, weight stable, bowels normal. Will continue once daily ensure and once daily gatorade at this time rt increased energy/protein/fluid needs with covid. Will monitor to alter as indicated. Original Note: PO intakes 75%, weight stable, BG elevated ~130. Will continue to monitor/alter nutritional care plan as indicated.
--- NOTE | 2021-03-21 10:44 | HMH.PULMCON ---
*Admission Date: 03/17/21 *Reason for consult:: COVID-19 pneumonia, acute hypoxic respiratory failure *History of present illness: Mr. Lala is a 45-year-old male never smoker no prior respiratory complaints, unvaccinated for COVID-19 presented to the hospital with worsening respiratory standpoint to be possible COVID-19 pneumonia and has been receiving remdesivir and dexamethasone since admission with gradual worsening respiratory status and worsening infiltrates on chest x-ray and pulmonary was called for further management. [facility] History Medical History: Denies:: Cancer, Chronic Obstructive Pulmonary Disease (COPD), Coronary Artery Disease, Diabetes Mellitus Type 1, Diabetes Mellitus Type 2, MRSA *Have you ever received a pneumonia vaccine?: No *Have you received a flu vaccine this season?: No Other Medical History: Reports: Other (Psoriasis) Other Surgeries: Yes: No Previous Surgery Amputation: No Fractures: Yes ((R) wrist) - *Social History Smoking Status: Never smoker Alcohol Intake: never *Occupational Status:: employed *Travel in the last 8 weeks: None Family Hx:: No significant family history ROS - Cons Reports body ache(s), Denies chills - Eyes Denies blurry vision - Card Reports shortness of breath, Reports shortness of breath with activity, Denies leg swelling - Resp Respiratory: Reports chest congestion, Reports cough, Reports dyspnea, Denies pain on inspiration, Reports cough with sputum production - GI Gastrointestingal: Denies: vomiting Meds Home Medications Medication Instructions Recorded Confirmed Type Risankizumab-Rzaa [Skyrizi (2 150 mg SQ Q3M 03/17/21 03/18/21 History Syringes) Kit] Allergies Allergy/AdvReac Type Severity Reaction Status Date / Time No Known Allergies Allergy Unverified 07/29/17 14:31 Exam - Constitutional Constitutional:: Present: no acute distress, comfortable - HENMT Exam HENMT: Present: normocephalic, atraumatic - Eye Exam Eyes:: Present: normal appearance both eyes and related structures - Neck Exam Neck:: Present: normal visual inspection - Respiratory Exam Respiratory:: Present: able to speak in complete sentences, no respiratory distress, crackles. Absent: wheezing - Cardiovascular Exam Cardiac:: Present: S1, S2 - GI Exam GI:: Present: soft - Skin Exam Skin: Present: warm, no rash, dry - Neurological Exam Neurological: Present: alert, awake, normal cognition - Extremities Exam Extremities: Present: no cyanosis, no clubbing, no edema Internal Medicine - CN: Reslt - Labs CBC & Chem 7: 03/21/21 05:35 03/21/21 05:35 Labs: Short CBC 03/21/21 Range/Units 05:35 WBC 10.8 (4.8-10.8) K/mm3 Hgb 15.0 (14.1-18.0) g/dL Hct 44.2 (42.0-52.0) % Plt Count 351 D (142-424) K/mm3 BMP 03/21/21 05:35 Sodium 142 Potassium 4.2 Chloride 108 H Carbon Dioxide 27 BUN 20 Creatinine 0.70 Glucose 128 H Calcium 8.4 Liver Function 03/21/21 Range/Units 05:35 Total Bilirubin 0.6 (0.2-1.3) mg/dl Direct Bilirubin 0.5 H (0.0-0.4) mg/dl AST 56 (17-59) U/L ALT 57 D (12-78) U/L Alkaline Phosphatase 64 (38-126) U/L Albumin 3.3 L (3.5-5.0) g/dl Assessment and Plan (1) COVID-19 in immunocompromised patient Status: Acute Category: Medical Code(s): U07.1 - COVID-19; D84.9 - Immunodeficiency, unspecified (2) Hypoxia Status: Acute Category: Medical Code(s): R09.02 - Hypoxemia (3) Pneumonia due to 2019 novel coronavirus Status: Acute Category: Medical Code(s): U07.1 - COVID-19; J12.82 - Pneumonia due to coronavirus disease 2019 (4) Psoriasis Status: Acute Category: Medical Code(s): L40.9 - Psoriasis, unspecified (5) Fever Status: Acute Qualifiers: Fever type: unspecified Qualified Code(s): R50.9 - Fever, unspecified Category: Medical Code(s): R50.9 - Fever, unspecified (6) Elevated blood pressure reading Status: Acute [place]
--- NOTE | 2021-03-21 10:50 | CT_ITS ---
PROCEDURE: CT ANGIO CHEST PE PROTOCOL CLINCIAL INDICATION: Hypoxia Covid19 pneumonia COMPARISON: CR XR CHEST PORTABLE from 03/20/2021 TECHNIQUE: IV Contrast: 70ML Isovue 370 Axial images obtained with sagittal and coronal reformats. All CT scans at the facility use one or more dose reduction, viz: automated exposure control, ma/kV adjustment per patient size (including targeted exams where dose is matched to indication, i.e. head), or iterative reconstruction technique. FINDINGS: HEART AND MEDIASTINAL STRUCTURES: There are few scattered small mediastinal lymph nodes. There is a small hiatal hernia. Pulmonary arterial opacification is somewhat limited despite repeating the exam and changing the injection time no definite pulmonary embolus. LUNGS AND PLEURAL SPACES: Multifocal ground-glass infiltrates are present in both upper and lower lobes with some sparing of the left apex and anterior lung casas. Atelectatic changes are present in the lower lobes with consolidation posteriorly. These findings are consistent with Covid19 pneumonia. No effusions are evident. No areas of cavitation. BONY STRUCTURES: No acute bony abnormalities apparent. UPPER ABDOMEN: Small hiatal hernia. Minimal haziness of the right Kathryn renal fat anteriorly ADDITIONAL FINDINGS: No other significant abnormalities. IMPRESSION: 1. No definite pulmonary embolus. 2. Multifocal ground-glass opacities with basilar consolidation and atelectasis consistent with Covid19 pneumonia Dictated by: Adrian Givens MD 03/21/2021 14:01 Adrian Givens MD in [facility] 03/21/2021 14:01
--- NOTE | 2021-03-21 10:56 | HMH.ITSTN ---
SPOKE WITH FREIDA JOHNSON, SHE WILL CALL WHEN PATIENT'S MEDS ARE FINISHED.
[2021-03-21 11:47] LABS: Lactate Dehydrogenase 427 U/L (313-618)
[2021-03-21 11:52] LABS: C-Reactive Protein 38.1 mg/L (0-4)
[2021-03-21 12:41] LABS: D-Dimer 0.44 ug/mL (0.0-0.5)
--- NOTE | 2021-03-21 16:51 | PC.NURSE ---
Pt has been pleasant and cooperative this shift. A&O X4. No complaints of pain. Pt is currently receiving O2 via NC @ 5 LPM with sats. >90%. Pt de-sats. to 75-80% with any sort of activity/exertion and reports SOA. Pt reports that SOA is improving and that it isn't as bad as yesterday . Once resting, pt takes about 10 minutes to fully recover O2 saturations. Lung sounds are diminished. No edema noted. Skin is C/D/I. Pt ambulates independently. Urine is clear and shantel. 1 small, soft, brown stool this shift. Appetite is good and pt eats about 50-75% of all meals. Pt turns/repositions independently and lies prone as tolerated. 20 G peripheral IV in the RT forearm is patent and SL. B/P has been slightly elevated today. Other VSS. Call light within reach. Will continue to monitor.
[2021-03-22 04:00] VITALS: BP 124/87; PULSE 76; RESP 20; TEMP 36.8; O2SAT 87
--- NOTE | 2021-03-22 04:46 | PC.NURSE ---
A&OX4. PT TOLERATING 6LNC WELL WITH O2 SAT MID 80S TO UPPER 90S. PT HASHAD NO C/O T/O SHIFT. UP INDEPENDENTLY IN ROOM. RESTING COMFORTABLY. VSS WILL CONTINUE TO MONITOR.
[2021-03-22 05:44] LABS: Chloride 107 mmol/L (98-107); Sodium 138 mmol/L (136-145)
[2021-03-22 05:45] LABS: Potassium 4.6 mmoL/L (3.5-5.1)
[2021-03-22 05:47] LABS: Alanine Aminotransferase 82 U/L (12-78); Alkaline Phosphatase 34 U/L (38-126); Anion Gap 9.6 mEq/L (5-15); Aspartate Amino Transferase 61 U/L (17-59); Bilirubin,Direct 0.7 mg/dl (0.0-0.4); Bilirubin,Indirect 0.2 mg/dL (0.0-0.9); Bilirubin,Total 0.9 mg/dl (0.2-1.3); Bilirubin,Unconjugated 0.2 mg/dL (0.0-1.1); Blood Urea Nitrogen 20 mg/dl (9-20); Calcium 7.8 mg/dl (8.4-10.2); Carbon Dioxide 26 mmol/L (22.0-30.0); Creatinine Clearance Estimated 188 mL/min (50-200); Estimated Glomerular Filt Rate 146 ml/min (>60); GFR (African American) 177 ML/MIN (>60); Glucose 114 mg/dl (74-100)
[2021-03-22 05:48] LABS: Total Protein,Serum 6.5 g/dl (6.3-8.2)
[2021-03-22 08:00] VITALS: BP 134/85; PULSE 84; RESP 20; TEMP 36.7; O2SAT 90
--- NOTE | 2021-03-22 08:14 | HMH.ACPN2 ---
Internal Medicine - PN: Subj *Date: 03/22/21 *Time: 08:14 Interval history: Patient with no new complaints today. Exam Vital signs and Labs for Last 24 Hours: Temp Pulse Resp BP Pulse Ox 98.2 F 76 20 124/87 87 L 03/22/21 04:00 03/22/21 04:00 03/22/21 04:00 03/22/21 04:00 03/22/21 04:00 Laboratory Results - last 24 hr 03/21/21 05:35: WBC 10.8, RBC 5.28, Hgb 15.0, Hct 44.2, MCV 83.7, MCH 28.3, MCHC 33.9, RDW 13.5, Plt Count 351 D, MPV 8.4, Neut % (Auto) 85.7 H, Lymph % (Auto) 7.9 L, [place] % (Auto) 5.7, Eos % (Auto) 0.0 L, Baso % (Auto) 0.6, Neut # (Auto) 9.3 H, Lymph # (Auto) 0.9, [place] # (Auto) 0.6, Eos # (Auto) 0.0, Baso # (Auto) 0.1, Total Counted 100, Neutrophils % (Manual) 87 H, Lymphocytes % (Manual) 7 L, Monocytes % (Manual) 6, Platelet Estimate Normal 03/21/21 05:35: Lactate Dehydrogenase 427, C-Reactive Protein 38.1 H 03/21/21 11:00: D-Dimer 0.44 03/22/21 05:10: Sodium 138, Potassium 4.6, Chloride 107, Carbon Dioxide 26, Anion Gap 9.6, BUN 20, Creatinine 0.60 L, Estimated Creat Clear 188, Estimated GFR 146, Est GFR ( Amer) 177, Glucose 114 H, Calcium 7.8 L, Total Bilirubin 0.9, Direct Bilirubin 0.7 H, Conjugated Bilirubin 0.0, Indirect Bilirubin 0.2, Unconjugated Bilirubin 0.2, AST 61 H, ALT 82 H D, Alkaline Phosphatase 34 L, Total Protein 6.5, Albumin 3.0 L Vital Signs - 24 hr 03/21/21 12:00 03/21/21 16:00 03/21/21 20:00 Temperature 97.7 F 97.8 F 98.7 F Pulse Rate [Apical] 57 L Pulse Rate [Right Radial] 97 H 85 Respiratory Rate 20 24 25 H Blood Pressure [Right Arm] 146/99 H 156/104 H 146/89 H 02 Sat by Pulse Oximetry 93 L 92 L 95 03/21/21 23:26 03/21/21 23:27 03/21/21 23:49 Temperature 98.6 F Pulse Rate [Apical] 76 Pulse Rate [Right Radial] Respiratory Rate 20 Blood Pressure [Right Arm] 140/95 H 02 Sat by Pulse Oximetry 94 L 92 L 94 L 03/22/21 04:00 Temperature 98.2 F Pulse Rate [Apical] 76 Pulse Rate [Right Radial] Respiratory Rate 20 Blood Pressure [Right Arm] 124/87 02 Sat by Pulse Oximetry 87 L I & O for Last 24 hours: Intake & Output 03/19/21 03/20/21 03/21/21 03/22/21 23:59 23:59 23:59 23:59 Intake Total 900 / 900 1180 / 1180 1360 / 1560 200 / 200 Output Total 500 / 950 1950 / 2150 1200 / 1200 Balance 400 / -50 -770 / -970 160 / 360 200 / 200 Weight 189 lb 9.561 oz 186 lb 6 oz Microbiology Reports for the Last 24 Hours: Microbiology 03/17/21 12:05 Sputum - Expectorated Sputum Gram Stain - Final 03/17/21 12:05 Sputum - Expectorated Sputum Sputum Culture - Final Normal Respiratory [place] - Constitutional no acute distress - *Routine HEENT Exam Head: Present: normocephalic Eye: Present: EOMI, PERRL ENT: Present: mucous membranes moist - *Routine Neck Exam Present: supple. Absent: lymphadenopathy - *Routine Respiratory Exam Present: crackles (bilateral, right more than left). Absent: wheezes - *Routine Cardiovascular Exam Present: RRR - *Routine Abdominal Exam Present: soft, normoactive bowel sounds. Absent: tenderness - *Routine Extremities Exam Absent: cyanosis, clubbing, edema - *Routine Skin Exam Present: warm. Absent: rash - *Routine Neurological Exam Present: alert, oriented X3 Assessment and Plan (1) COVID-19 in immunocompromised patient Status: Acute Category: Medical Code(s): U07.1 - COVID-19; D84.9 - Immunodeficiency, unspecified (2) Hypoxia Status: Acute Category: Medical Code(s): R09.02 - Hypoxemia (3) Pneumonia due to 2019 novel coronavirus Status: Acute Category: Medical Code(s): U07.1 - COVID-19; J12.82 - Pneumonia due to coronavirus disease 2019 (4) Psoriasis Status: Acute Category: Medical Code(s): L40.9 - Psoriasis, unspecified (5) Fever Status: Acute Qualifiers: Fever type: unspecified Qualified Code(s): R50.9 - Fever, unspecified Category: Medical Code(s): R50.9 - Fever, unspecified (6) Elevated bl
--- NOTE | 2021-03-22 08:55 | HMH.PULMPN ---
Internal Medicine - PN: Subj *Date: 03/22/21 *Time: 11:32 Interval history: No acute respiratory events overnight. Exam - Constitutional Constitutional:: Present: no acute distress, comfortable - HENMT Exam HENMT: Present: normocephalic, atraumatic - Eye Exam Eyes:: Present: normal appearance both eyes and related structures - Neck Exam Neck:: Present: normal visual inspection - Respiratory Exam Respiratory:: Present: able to speak in complete sentences, respiratory distress, crackles - Cardiovascular Exam Cardiac:: Present: S1, S2 - GI Exam GI:: Present: soft - Skin Exam Skin: Present: warm, no rash, dry - Neurological Exam Neurological: Present: alert, awake, normal cognition - Extremities Exam Extremities: Present: no cyanosis, no clubbing, no edema Assessment and Plan (1) COVID-19 in immunocompromised patient Status: Acute Category: Medical Code(s): U07.1 - COVID-19; D84.9 - Immunodeficiency, unspecified (2) Hypoxia Status: Acute Category: Medical Code(s): R09.02 - Hypoxemia (3) Pneumonia due to 2019 novel coronavirus Status: Acute Category: Medical Code(s): U07.1 - COVID-19; J12.82 - Pneumonia due to coronavirus disease 2019 (4) Psoriasis Status: Acute Category: Medical Code(s): L40.9 - Psoriasis, unspecified (5) Fever Status: Acute Qualifiers: Fever type: unspecified Qualified Code(s): R50.9 - Fever, unspecified Category: Medical Code(s): R50.9 - Fever, unspecified (6) Elevated blood pressure reading Status: Acute Category: Medical Code(s): R03.0 - Elevated blood-pressure reading, without diagnosis of hypertension - Assessment and plan all Dx Assessment and Plan for all problems:: #COVID-19 pneumonia: #Acute hypoxic respiratory failure: 45-year-old no prior respiratory complaint no significant smoking history, unvaccinated present worsening respiratory distress on 03/17/2021 and has been receiving remdesivir and dexamethasone since then. He before this admission presented to [facility] on 03/13/21 during which she was diagnosed with COVID-19 pneumonia. Patient respiratory status is worsening since admission with increasing oxygen requirements currently on 5-6L NC, worsening infiltrates on his recent chest x-ray and he also admits worsening respiratory distress Proning protocol was initiated since admission by primary team Repeat CT PE from 03/21/2021 did not show any evidence of pulmonary edema, showed bilateral diffuse groundglass opacities. CRP elevated at 38.1. LDH at 427. Patient respiratory status relatively stable since yesterday. Continue Zosyn awaiting repeat sputum cultures. Sputum culture from 03/17 normal respiratory mary grace. Continue PPI twice daily and chemical DVT prophylaxis. DuoNebs every 6 hours as needed Continue remdesivir and dexamethasone for COVID-19 pneumonia
[2021-03-22 12:00] VITALS: BP 127/88; PULSE 93; RESP 20; TEMP 36.6; O2SAT 92
[2021-03-22 16:00] VITALS: BP 136/83; PULSE 73; RESP 19; TEMP 36.6; O2SAT 92
--- NOTE | 2021-03-22 16:23 | PC.NURSE ---
Pt has been pleasant and cooperative this shift. A&O X4. No complaints of pain. Pt is currently receiving O2 via NC @ 6 LPM with sats. >90%. Pt de-sats. to mid-80's with any sort of activity/exertion and reports SOA. Pt has been able to ambulate around the room and also sat up in the recliner for a few hours. Lung sounds are diminished. No edema noted. Skin is C/D/I. Urine is clear and shantel in color. No BM thus far today. Appetite is good and pt eats the majority of all meals. Pt turns/repositions independently and lies prone as tolerated. Pt has been instructed to provide an additional sputum sample and a specimen cup has been placed at bedside. 20 G peripheral IV in the RT forearm is patent and SL. VSS. Call light within reach. Will continue to monitor.
[2021-03-22 20:00] VITALS: BP 137/89; PULSE 70; RESP 20; TEMP 37; O2SAT 92; O2SAT 93
[2021-03-22 23:12] VITALS: O2SAT 98
[2021-03-23] VITALS (8 sets, daily range): BP systolic 106–141; BP diastolic 68–100; PULSE 56–86; RESP 18–22; TEMP 36.7–37.1; O2SAT 89–95
--- NOTE | 2021-03-23 04:08 | PC.NURSE ---
Pt is A/O x4. Pt slept well this shift. Remained on 5L NC most of shift, 04:00 pt started to destat in low 80's, increased O2 to 6L and pt has remained high 80's-90%. Pt denies any pain this shift. Uses urinal to void light shantel urine. Call light within reach, pt is able to make needs known to staff. No concerns at this time.
--- NOTE | 2021-03-23 06:22 | PC.NURSE ---
Turned pt back to 5L NC and O2 stats have been 92%-95%.
[2021-03-23 06:37] LABS: Basophils # 0.1 K/mm3 (0-0.2); Basophils % 0.5 % (0.1-2.0); Chloride 105 mmol/L (98-107); Eosinophils # 0.1 K/mm3 (0.0-0.4); Eosinophils % 0.8 % (0.1-12.0); Hemoglobin 14.8 g/dL (14.1-18.0); Mean Corpuscular HGB Conc 34.4 g/dL (31.8-35.4); Mean Corpuscular Hemoglobin 28.6 pg (27.0-31.2); Mean Corpuscular Volume 83.2 fl (80-94); Monocytes # 0.9 K/mm3 (0.1-1.0); Neutrophils # 9.6 K/mm3 (1.8-7.8); Neutrophils % 75.8 % (37.0-80.0); Platelet Count 486 K/mm3 (142-424); Red Blood Count 5.16 M/mm3 (4.60-6.20); Red Cell Distribution Width 13.4 % (11.5-17.5); Sodium 138 mmol/L (136-145); White Blood Count 12.6 K/mm3 (4.8-10.8)
[2021-03-23 06:38] LABS: Potassium 4.5 mmoL/L (3.5-5.1)
[2021-03-23 06:40] LABS: Alanine Aminotransferase 89 U/L (12-78); Albumin Level 3.2 g/dl (3.5-5.0); Albumin/Globulin Ratio 0.9 (1.1-1.8); Alkaline Phosphatase 59 U/L (38-126); Anion Gap 9.5 mEq/L (5-15); Aspartate Amino Transferase 41 U/L (17-59); Bilirubin,Total 0.5 mg/dl (0.2-1.3); Blood Urea Nitrogen 17 mg/dl (9-20); Carbon Dioxide 28 mmol/L (22.0-30.0); Creatinine Clearance Estimated 141 mL/min (50-200); Estimated Glomerular Filt Rate 105 ml/min (>60); GFR (African American) 127 ML/MIN (>60); Globulin 3.4 g/dL (1.3-3.2); Total Protein,Serum 6.6 g/dl (6.3-8.2)
[2021-03-23 06:41] LABS: Calcium 8.1 mg/dl (8.4-10.2); Glucose 95 mg/dl (74-100)
--- NOTE | 2021-03-23 07:52 | HMH.ACPN2 ---
Internal Medicine - PN: Subj *Date: 03/23/21 *Time: 07:52 Interval history: Patient states he feels a little better today, no new complaints. Nursing staff states his supplemental O2 was weaned down to 4 L/min for a short time yesterday, but had to go back up to 6 L/min overnight, now on 5 L/min Exam Vital signs and Labs for Last 24 Hours: Temp Pulse Resp BP Pulse Ox 98.2 F 86 22 140/95 H 92 L 03/23/21 03:59 03/23/21 05:41 03/23/21 05:41 03/23/21 05:41 03/23/21 05:41 Laboratory Results - last 24 hr 03/23/21 05:30: WBC 12.6 H, RBC 5.16, Hgb 14.8, Hct 43.0, MCV 83.2, MCH 28.6, MCHC 34.4, RDW 13.4, Plt Count 486 H D, MPV 8.0, Neut % (Auto) 75.8, Lymph % (Auto) 16.0, [place] % (Auto) 7.0, Eos % (Auto) 0.8, Baso % (Auto) 0.5, Neut # (Auto) 9.6 H, Lymph # (Auto) 2.0, [place] # (Auto) 0.9, Eos # (Auto) 0.1, Baso # (Auto) 0.1 03/23/21 05:30: Sodium 138, Potassium 4.5, Chloride 105, Carbon Dioxide 28, Anion Gap 9.5, BUN 17, Creatinine 0.80 D, Estimated Creat Clear 141, Estimated GFR 105, Est GFR ( Amer) 127 D, Glucose 95, Calcium 8.1 L, Total Bilirubin 0.5, AST 41 D, ALT 89 H, Alkaline Phosphatase 59, Total Protein 6.6, Albumin 3.2 L, Globulin 3.4 H, Albumin/Globulin Ratio 0.9 L Vital Signs - 24 hr 03/22/21 08:00 03/22/21 12:00 03/22/21 16:00 Temperature 98.0 F 97.8 F 97.9 F Pulse Rate [Apical] 84 Pulse Rate [Right Radial] 84 93 H 73 Respiratory Rate 20 20 19 Blood Pressure [Right Arm] 134/85 127/88 136/83 02 Sat by Pulse Oximetry 90 L 92 L 92 L 03/22/21 20:00 03/22/21 23:12 03/23/21 00:00 Temperature 98.6 F 98.7 F Pulse Rate [Apical] Pulse Rate [Right Radial] 70 66 Respiratory Rate 20 22 Blood Pressure [Right Arm] 137/89 139/92 H 02 Sat by Pulse Oximetry 93 L 98 95 03/23/21 03:59 03/23/21 05:41 Temperature 98.2 F Pulse Rate [Apical] Pulse Rate [Right Radial] 57 L 86 Respiratory Rate 20 22 Blood Pressure [Right Arm] 141/100 H 140/95 H 02 Sat by Pulse Oximetry 89 L 92 L I & O for Last 24 hours: Intake & Output 03/20/21 03/21/21 03/22/21 03/23/21 23:59 23:59 23:59 23:59 Intake Total 1180 / 1180 1360 / 1560 1880 / 1880 Output Total 1950 / 2150 1200 / 1200 2550 / 2550 Balance -770 / -970 160 / 360 -670 / -670 Weight 186 lb 6 oz Microbiology Reports for the Last 24 Hours: Microbiology 03/17/21 18:16 Blood Blood Culture - Final NO GROWTH AFTER 5 DAYS 03/17/21 18:16 Blood Blood Culture - Final NO GROWTH AFTER 5 DAYS - Constitutional no acute distress - *Routine HEENT Exam Head: Present: normocephalic Eye: Present: EOMI, PERRL ENT: Present: mucous membranes moist - *Routine Neck Exam Present: supple. Absent: lymphadenopathy - *Routine Respiratory Exam Present: crackles. Absent: wheezes - *Routine Cardiovascular Exam Present: RRR - *Routine Abdominal Exam Present: soft, normoactive bowel sounds. Absent: tenderness - *Routine Extremities Exam Absent: cyanosis, clubbing, edema - *Routine Skin Exam Present: warm. Absent: rash - *Routine Neurological Exam Present: alert, oriented X3 Assessment and Plan (1) COVID-19 in immunocompromised patient Status: Acute Category: Medical Code(s): U07.1 - COVID-19; D84.9 - Immunodeficiency, unspecified (2) Hypoxia Status: Acute Category: Medical Code(s): R09.02 - Hypoxemia (3) Pneumonia due to 2019 novel coronavirus Status: Acute Category: Medical Code(s): U07.1 - COVID-19; J12.82 - Pneumonia due to coronavirus disease 2019 (4) Psoriasis Status: Acute Category: Medical Code(s): L40.9 - Psoriasis, unspecified (5) Fever Status: Acute Qualifiers: Fever type: unspecified Qualified Code(s): R50.9 - Fever, unspecified Category: Medical Code(s): R50.9 - Fever, unspecified (6) Elevated blood pressure reading Status: Acute Category: Medical Code(s): R03.0 - Elevated blood-pressure reading
--- NOTE | 2021-03-23 08:37 | P.PN_ITS ---
Internal Medicine - PN: Subj *Date: 03/23/21 *Time: 10:31 Interval history: No acute respiratory vents overnight patient. Patient admits overall improvement in his respiratory status since admission, still needing 5 to 6 L oxygen supplementation. Exam - Constitutional Constitutional:: Present: no acute distress, comfortable - HENMT Exam HENMT: Present: normocephalic - Eye Exam Eyes:: Present: normal appearance both eyes and related structures - Neck Exam Neck:: Present: normal visual inspection - Respiratory Exam Respiratory:: Present: able to speak in complete sentences, no respiratory distress, crackles - Cardiovascular Exam Cardiac:: Present: S1, S2 - GI Exam GI:: Present: soft - Skin Exam Skin: Present: warm, no rash - Neurological Exam Neurological: Present: alert, awake, normal cognition - Extremities Exam Extremities: Present: no cyanosis, no clubbing, no edema Assessment and Plan (1) COVID-19 in immunocompromised patient Status: Acute Category: Medical Code(s): U07.1 - COVID-19; D84.9 - Immunodeficiency, unspecified (2) Hypoxia Status: Acute Category: Medical Code(s): R09.02 - Hypoxemia (3) Pneumonia due to 2019 novel coronavirus Status: Acute Category: Medical Code(s): U07.1 - COVID-19; J12.82 - Pneumonia due to coronavirus disease 2019 (4) Psoriasis Status: Acute Category: Medical Code(s): L40.9 - Psoriasis, unspecified (5) Fever Status: Acute Qualifiers: Fever type: unspecified Qualified Code(s): R50.9 - Fever, unspecified Category: Medical Code(s): R50.9 - Fever, unspecified (6) Elevated blood pressure reading Status: Acute Category: Medical Code(s): R03.0 - Elevated blood-pressure reading, without diagnosis of hypertension - Assessment and plan all Dx Assessment and Plan for all problems:: #COVID-19 pneumonia: #Acute hypoxic respiratory failure: 45-year-old no prior respiratory complaint no significant smoking history, unvaccinated present worsening respiratory distress on 03/17/2021 and has been receiving remdesivir and dexamethasone since then. He before this admission presented to [facility] on 03/13/21 during which she was diagnosed with COVID-19 pneumonia. Proning protocol was initiated since admission by primary team CT PE from 03/21/2021 did not show any evidence of pulmonary edema, showed bilateral diffuse groundglass opacities. CRP elevated at 38.1. LDH at 427. Repeat CRP from today improving. Patient overall improved admits improvement in his respiratory status since admission. Continue Zosyn.Sputum culture from 03/17 normal respiratory mary grace. Awaiting repeat sputum cultures, collected today Continue PPI twice daily and chemical DVT prophylaxis. DuoNebs every 6 hours as needed Continue remdesivir and dexamethasone for COVID-19 pneumonia
[2021-03-23 08:55] LABS: C-Reactive Protein 15.5 mg/L (0-4)
--- NOTE | 2021-03-23 13:37 | PC.NURSE ---
Pt has been 90-95% on 5L NC this shift. Attempted to wean pt down to 4 L and pt desaturated to mid-80's. Pt bumped back up to 5L NC. While walking around in room pt will desat to 88-90%, but quickly recovers. Will continue to attempt weaning oxygen
--- NOTE | 2021-03-23 14:41 | PC.NURSE ---
4L NC @ this time. o2 sat is 94%
--- NOTE | 2021-03-23 17:30 | PC.NURSE ---
Pt remains alert and oriented. Pt has had no c/o SOB this shift. Pt remains on 4L NC and sats continue between 90-94%. Pt did have x1 BM this shift, active bowel sounds in all 4 quads. Urine is clear, dark yellow w/ a strong odor. BP has been normotensive this shift. No other acute changes or complaints, will continue to monitor.
[2021-03-24] VITALS (7 sets, daily range): BP systolic 104–131; BP diastolic 69–89; PULSE 52–84; RESP 18; TEMP 36.7–36.9; O2SAT 90–95; BMI 26.9
--- NOTE | 2021-03-24 06:45 | PC.NURSE ---
patient has had an uneventful night; O2 sats have remained in low 90's this shift; no s/s of acute distress noted, call light in reach, bed at lowest level for safety; will continue to monitor.
--- NOTE | 2021-03-24 08:48 | HMH.ACPN2 ---
Internal Medicine - PN: Subj *Date: 03/24/21 *Time: 09:15 Interval history: Patient feels better today, no new complaints. Exam Vital signs and Labs for Last 24 Hours: Temp Pulse Resp BP Pulse Ox 98.1 F 70 18 123/86 92 L 03/24/21 08:00 03/24/21 08:00 03/24/21 08:00 03/24/21 08:00 03/24/21 08:00 Laboratory Results - last 24 hr 03/23/21 05:30: C-Reactive Protein 15.5 H D Vital Signs - 24 hr 03/23/21 12:00 03/23/21 14:40 03/23/21 16:00 Temperature 98.0 F 98.0 F Pulse Rate [Apical] 79 85 Respiratory Rate 19 19 Blood Pressure [Right Arm] 106/76 L 112/69 02 Sat by Pulse Oximetry 93 L 94 L 93 L 03/23/21 20:00 03/24/21 00:00 03/24/21 01:33 Temperature 98.0 F 98.2 F Pulse Rate [Apical] 56 L 52 L Respiratory Rate 18 18 Blood Pressure [Right Arm] 140/78 131/89 02 Sat by Pulse Oximetry 90 L 90 L 94 L 03/24/21 04:00 03/24/21 08:00 Temperature 98.1 F 98.1 F Pulse Rate [Apical] 62 70 Respiratory Rate 18 18 Blood Pressure [Right Arm] 115/81 123/86 02 Sat by Pulse Oximetry 93 L 92 L I & O for Last 24 hours: Intake & Output 03/21/21 03/22/21 03/23/21 03/24/21 23:59 23:59 23:59 23:59 Intake Total 1360 / 1560 1880 / 1880 1820 / 1820 440 / 440 Output Total 1200 / 1200 2550 / 2550 925 / 925 400 / 400 Balance 160 / 360 -670 / -670 895 / 895 40 / 40 Weight 186 lb 6 oz 188 lb 6.936 oz Microbiology Reports for the Last 24 Hours: Microbiology 03/23/21 08:00 Sputum - Expectorated Sputum Gram Stain - Final - Constitutional no acute distress - *Routine HEENT Exam Head: Present: normocephalic Eye: Present: EOMI, PERRL ENT: Present: mucous membranes moist - *Routine Neck Exam Present: supple. Absent: lymphadenopathy - *Routine Respiratory Exam Comments: better air movement today, only an occasional crackle - *Routine Cardiovascular Exam Present: RRR - *Routine Abdominal Exam Present: soft, normoactive bowel sounds. Absent: tenderness - *Routine Extremities Exam Absent: cyanosis, clubbing, edema - *Routine Skin Exam Present: warm. Absent: rash - *Routine Neurological Exam Present: alert, oriented X3 Assessment and Plan (1) COVID-19 in immunocompromised patient Status: Acute Category: Medical Code(s): U07.1 - COVID-19; D84.9 - Immunodeficiency, unspecified (2) Hypoxia Status: Acute Category: Medical Code(s): R09.02 - Hypoxemia (3) Pneumonia due to 2019 novel coronavirus Status: Acute Category: Medical Code(s): U07.1 - COVID-19; J12.82 - Pneumonia due to coronavirus disease 2019 (4) Psoriasis Status: Acute Category: Medical Code(s): L40.9 - Psoriasis, unspecified (5) Fever Status: Acute Qualifiers: Fever type: unspecified Qualified Code(s): R50.9 - Fever, unspecified Category: Medical Code(s): R50.9 - Fever, unspecified (6) Elevated blood pressure reading Status: Acute Category: Medical Code(s): R03.0 - Elevated blood-pressure reading, without diagnosis of hypertension - Assessment and plan all Dx Assessment and Plan for all problems:: Pt improving, on 4 L of O2 now per NC, attempt to wean down as tolerated.
[2021-03-25] VITALS: BP 123/81; PULSE 58; RESP 18; TEMP 36.6; O2SAT 93
--- NOTE | 2021-03-25 03:34 | PC.NURSE ---
Patient has had no ACUTE changes this shift. He remains ambulatory and on 4L NC. Patient vital signs are stable, call light within reach, will continue to monitor.
[2021-03-25 04:00] VITALS: BP 133/80; PULSE 54; RESP 20; TEMP 36.8; O2SAT 95
[2021-03-25 05:00] VITALS: BMI 27.2
[2021-03-25 06:36] LABS: Chloride 104 mmol/L (98-107); Potassium 4.2 mmoL/L (3.5-5.1); Sodium 137 mmol/L (136-145)
[2021-03-25 06:39] LABS: Alanine Aminotransferase 55 U/L (12-78); Alkaline Phosphatase 52 U/L (38-126); Anion Gap 10.2 mEq/L (5-15); Aspartate Amino Transferase 27 U/L (17-59); Bilirubin,Direct 0.4 mg/dl (0.0-0.4); Bilirubin,Indirect 0.1 mg/dL (0.0-0.9); Bilirubin,Total 0.5 mg/dl (0.2-1.3); Bilirubin,Unconjugated 0.1 mg/dL (0.0-1.1); Blood Urea Nitrogen 16 mg/dl (9-20); Calcium 8.1 mg/dl (8.4-10.2); Carbon Dioxide 27 mmol/L (22.0-30.0); Creatinine Clearance Estimated 144 mL/min (50-200); Estimated Glomerular Filt Rate 105 ml/min (>60); GFR (African American) 127 ML/MIN (>60); Glucose 116 mg/dl (74-100)
[2021-03-25 06:40] LABS: Total Protein,Serum 6.4 g/dl (6.3-8.2)
[2021-03-25 08:00] VITALS: BP 123/97; PULSE 67; RESP 18; TEMP 36.6; O2SAT 90; O2SAT 92
--- NOTE | 2021-03-25 10:00 | HMH.ACPN2 ---
Internal Medicine - PN: Subj *Date: 03/25/21 *Time: 10:44 Interval history: Patient with no new complaints today, anxious to go home. Exam Vital signs and Labs for Last 24 Hours: Temp Pulse Resp BP Pulse Ox 97.8 F 67 18 123/97 H 90 L 03/25/21 08:00 03/25/21 08:00 03/25/21 08:00 03/25/21 08:00 03/25/21 08:00 Laboratory Results - last 24 hr 03/25/21 05:16: Sodium 137, Potassium 4.2, Chloride 104, Carbon Dioxide 27, Anion Gap 10.2, BUN 16, Creatinine 0.80, Estimated Creat Clear 144, Estimated GFR 105, Est GFR ( Amer) 127, Glucose 116 H, Calcium 8.1 L, Total Bilirubin 0.5, Direct Bilirubin 0.4, Conjugated Bilirubin 0.0, Indirect Bilirubin 0.1, Unconjugated Bilirubin 0.1, AST 27 D, ALT 55 D, Alkaline Phosphatase 52, Total Protein 6.4, Albumin 3.0 L Vital Signs - 24 hr 03/24/21 12:00 03/24/21 16:00 03/24/21 20:00 Temperature 98.1 F 98.4 F Pulse Rate [Apical] 84 68 Respiratory Rate 18 18 Blood Pressure [Right Arm] 115/71 104/69 L 02 Sat by Pulse Oximetry 92 L 94 L 95 03/25/21 00:00 03/25/21 04:00 03/25/21 08:00 Temperature 97.9 F 98.2 F 97.8 F Pulse Rate [Apical] 58 L 54 L 67 Respiratory Rate 18 20 18 Blood Pressure [Right Arm] 123/81 133/80 123/97 H 02 Sat by Pulse Oximetry 93 L 95 90 L I & O for Last 24 hours: Intake & Output 03/22/21 03/23/21 03/24/21 03/25/21 23:59 23:59 23:59 23:59 Intake Total 1880 / 1880 1820 / 1820 1620 / 1980 600 / 600 Output Total 2550 / 2550 925 / 925 1300 / 1300 Balance -670 / -670 895 / 895 320 / 680 600 / 600 Weight 188 lb 6.936 oz 190 lb 5 oz Microbiology Reports for the Last 24 Hours: Microbiology 03/23/21 08:00 Sputum - Expectorated Sputum Gram Stain - Final 03/23/21 08:00 Sputum - Expectorated Sputum Sputum Culture - Preliminary - Constitutional no acute distress - *Routine HEENT Exam Head: Present: normocephalic Eye: Present: EOMI, PERRL ENT: Present: mucous membranes moist - *Routine Neck Exam Present: supple. Absent: lymphadenopathy - *Routine Respiratory Exam Present: crackles (rare bilateral) - *Routine Cardiovascular Exam Present: RRR - *Routine Abdominal Exam Present: soft, normoactive bowel sounds. Absent: tenderness - *Routine Extremities Exam Absent: cyanosis, clubbing, edema - *Routine Skin Exam Present: warm. Absent: rash - *Routine Neurological Exam Present: alert, oriented X3 Assessment and Plan (1) COVID-19 in immunocompromised patient Status: Acute Category: Medical Code(s): U07.1 - COVID-19; D84.9 - Immunodeficiency, unspecified (2) Hypoxia Status: Acute Category: Medical Code(s): R09.02 - Hypoxemia (3) Pneumonia due to 2019 novel coronavirus Status: Acute Category: Medical Code(s): U07.1 - COVID-19; J12.82 - Pneumonia due to coronavirus disease 2019 (4) Psoriasis Status: Acute Category: Medical Code(s): L40.9 - Psoriasis, unspecified (5) Fever Status: Acute Qualifiers: Fever type: unspecified Qualified Code(s): R50.9 - Fever, unspecified Category: Medical Code(s): R50.9 - Fever, unspecified (6) Elevated blood pressure reading Status: Acute Category: Medical Code(s): R03.0 - Elevated blood-pressure reading, without diagnosis of hypertension - Assessment and plan all Dx Assessment and Plan for all problems:: Pt still needs 4 L/min of supplemental O2, probable discharge tomorrow.
[2021-03-25 11:38] VITALS: BP 125/79; PULSE 73; RESP 20; TEMP 36.5; O2SAT 93
[2021-03-25 15:39] VITALS: BP 109/72; PULSE 82; RESP 20; TEMP 36.7; O2SAT 95
--- NOTE | 2021-03-25 17:01 | PC.NURSE ---
PT STILL REQUIRES 4LNC, ABLE TO MOVE INDEPENDENTLY AROUND ROOM AND MAKES NEED KNOWN TO STAFF PRN, HE DENIES PAIN AND NO N/V/D HAS BEEN VOICED THIS SHIFT, HE USED URINAL INDEPENDENTLY T/O SHIFT, APPETITE WNL, VS REMAIN STABLE.
[2021-03-25 20:00] VITALS: BP 106/72; PULSE 72; RESP 18; TEMP 36.8; O2SAT 97
--- NOTE | 2021-03-25 20:48 | PC.NURSE ---
Pt oxygen turned down to 3LNC at this time.
[2021-03-26] VITALS: BP 107/72; PULSE 58; RESP 18; TEMP 36.8; O2SAT 97
--- NOTE | 2021-03-26 03:13 | PC.NURSE ---
Patient has had no acute changes this shift. Patient's O2 was lowered to 3L NC as he was holding steady with an oxygen saturation of 97% on 4L NC. Patient has maintained his oxygen saturation between 94-96% on 3LNC. Vital signs are stable, will continue to monitor, call light within reach.
[2021-03-26 04:00] VITALS: BP 119/85; PULSE 53; RESP 18; TEMP 36.8; O2SAT 94
[2021-03-26 05:00] VITALS: BMI 27.3
[2021-03-26 06:30] LABS: Chloride 103 mmol/L (98-107); Potassium 4.5 mmoL/L (3.5-5.1); Sodium 137 mmol/L (136-145)
[2021-03-26 06:33] LABS: Alanine Aminotransferase 50 U/L (12-78); Albumin Level 3.2 g/dl (3.5-5.0); Alkaline Phosphatase 53 U/L (38-126); Anion Gap 12.5 mEq/L (5-15); Aspartate Amino Transferase 25 U/L (17-59); Bilirubin,Direct 0.4 mg/dl (0.0-0.4); Bilirubin,Total 0.4 mg/dl (0.2-1.3); Blood Urea Nitrogen 15 mg/dl (9-20); Calcium 8.2 mg/dl (8.4-10.2); Carbon Dioxide 26 mmol/L (22.0-30.0); Creatinine Clearance Estimated 165 mL/min (50-200); Estimated Glomerular Filt Rate 123 ml/min (>60); GFR (African American) 148 ML/MIN (>60); Glucose 101 mg/dl (74-100); Total Protein,Serum 6.5 g/dl (6.3-8.2)
[2021-03-26 07:03] VITALS: O2SAT 90
--- NOTE | 2021-03-26 07:03 | PC.NURSE ---
patient has been on room air for 10 minutes patient is maintaining oxygen saturation at 89% to 91% at this time.
--- NOTE | 2021-03-26 07:32 | PC.NURSE ---
PT O2 SATURATION DROPS TO 88% ON ROOM AIR. HE MAY BENEFIT FROM HOME O2 UPON DISCHARGE.
[2021-03-26 08:00] VITALS: BP 106/61; PULSE 70; RESP 18; TEMP 36.7; O2SAT 88; O2SAT 91; O2SAT 93
--- NOTE | 2021-03-26 08:41 | HMH.ACPN2 ---
Internal Medicine - PN: Subj *Date: 03/26/21 *Time: 09:07 Interval history: Pt feels better, wants to go home. Exam Vital signs and Labs for Last 24 Hours: Temp Pulse Resp BP Pulse Ox 98.0 F 70 18 106/61 L 91 L 03/26/21 08:00 03/26/21 08:00 03/26/21 08:00 03/26/21 08:00 03/26/21 08:00 Laboratory Results - last 24 hr 03/26/21 04:43: Sodium 137, Potassium 4.5, Chloride 103, Carbon Dioxide 26, Anion Gap 12.5, BUN 15, Creatinine 0.70, Estimated Creat Clear 165, Estimated GFR 123, Est GFR ( Amer) 148, Glucose 101 H, Calcium 8.2 L, Total Bilirubin 0.4, Direct Bilirubin 0.4, Conjugated Bilirubin 0.0, Indirect Bilirubin 0.0, Unconjugated Bilirubin 0.0, AST 25, ALT 50, Alkaline Phosphatase 53, Total Protein 6.5, Albumin 3.2 L Vital Signs - 24 hr 03/25/21 11:38 03/25/21 15:39 03/25/21 20:00 Temperature 97.7 F 98.0 F 98.2 F Pulse Rate [Apical] 73 82 72 Respiratory Rate 20 20 18 Blood Pressure [Right Arm] 125/79 109/72 L 106/72 L 02 Sat by Pulse Oximetry 93 L 95 97 03/26/21 00:00 03/26/21 04:00 03/26/21 07:03 Temperature 98.2 F 98.2 F Pulse Rate [Apical] 58 L 53 L Respiratory Rate 18 18 Blood Pressure [Right Arm] 107/72 L 119/85 02 Sat by Pulse Oximetry 97 94 L 90 L 03/26/21 08:00 Temperature 98.0 F Pulse Rate [Apical] 70 Respiratory Rate 18 Blood Pressure [Right Arm] 106/61 L 02 Sat by Pulse Oximetry 91 L I & O for Last 24 hours: Intake & Output 03/23/21 03/24/21 03/25/21 03/26/21 23:59 23:59 23:59 23:59 Intake Total 1820 / 1820 1620 / 1980 1560 / 1560 600 / 600 Output Total 925 / 925 1300 / 1300 1525 / 1525 Balance 895 / 895 320 / 680 35 / 35 600 / 600 Weight 188 lb 6.936 oz 190 lb 5 oz 191 lb Microbiology Reports for the Last 24 Hours: Microbiology 03/23/21 08:00 Sputum - Expectorated Sputum Gram Stain - Final 03/23/21 08:00 Sputum - Expectorated Sputum Sputum Culture - Preliminary Gram Negative Rods Gram Positive Cocci - Constitutional no acute distress - *Routine HEENT Exam Head: Present: normocephalic Eye: Present: EOMI, PERRL ENT: Present: mucous membranes moist - *Routine Neck Exam Present: supple. Absent: lymphadenopathy - *Routine Respiratory Exam Present: CTA bilaterally - *Routine Cardiovascular Exam Present: RRR - *Routine Abdominal Exam Present: soft, normoactive bowel sounds. Absent: tenderness - *Routine Extremities Exam Absent: cyanosis, clubbing, edema - *Routine Skin Exam Present: warm. Absent: rash - *Routine Neurological Exam Present: alert, oriented X3 Assessment and Plan (1) COVID-19 in immunocompromised patient Status: Acute Category: Medical Code(s): U07.1 - COVID-19; D84.9 - Immunodeficiency, unspecified (2) Hypoxia Status: Acute Category: Medical Code(s): R09.02 - Hypoxemia (3) Pneumonia due to 2019 novel coronavirus Status: Acute Category: Medical Code(s): U07.1 - COVID-19; J12.82 - Pneumonia due to coronavirus disease 2019 (4) Psoriasis Status: Acute Category: Medical Code(s): L40.9 - Psoriasis, unspecified (5) Fever Status: Acute Qualifiers: Fever type: unspecified Qualified Code(s): R50.9 - Fever, unspecified Category: Medical Code(s): R50.9 - Fever, unspecified (6) Elevated blood pressure reading Status: Acute Category: Medical Code(s): R03.0 - Elevated blood-pressure reading, without diagnosis of hypertension - Assessment and plan all Dx Assessment and Plan for all problems:: OK for discharge home today with supplemental O2 at 2 L/min per NC. Off work for now, office f/u in 10 days.
--- NOTE | 2021-03-26 11:07 | SW/DCPLANNER ---
Addendum entered by Karli Rm 03/26/21 12:22: Karly with [facility] has reviewed patient information/order and O2 will be delivered to [facility] today. Addendum entered by Karli Rm 03/26/21 12:13: I have received a signed order from Dr Abreu for home O2 + portable. Patient information and order has been faxed to [facility]. Original Note: I am currently waiting on a signed order from MD to fax to [facility] for patient to discharge with home O2 + portable. Order form has been faxed to Dr Abreu office: I will follow up with office staff.
[2021-03-26 11:43] VITALS: BP 112/66; PULSE 65; RESP 18; TEMP 36.6; O2SAT 96
--- NOTE | 2021-03-26 12:33 | P.PN_ITS ---
Internal Medicine - PN: Subj *Date: 03/26/21 *Time: 12:33 Interval history: No acute respiratory events overnight. Patient respiratory status continued to improve with improving oxygen requirements Exam - Constitutional Constitutional:: Present: no acute distress, comfortable - HENMT Exam HENMT: Present: normocephalic, atraumatic - Eye Exam Eyes:: Present: normal appearance both eyes and related structures - Neck Exam Neck:: Present: normal visual inspection - Respiratory Exam Respiratory:: Present: able to speak in complete sentences, no respiratory distress, crackles - Cardiovascular Exam Cardiac:: Present: S1, S2 - GI Exam GI:: Present: soft - Skin Exam Skin: Present: warm, no rash, dry - Neurological Exam Neurological: Present: alert, awake, normal cognition - Extremities Exam Extremities: Present: no cyanosis, no clubbing, no edema Assessment and Plan (1) COVID-19 in immunocompromised patient Status: Acute Category: Medical Code(s): U07.1 - COVID-19; D84.9 - Immunodeficiency, unspecified (2) Hypoxia Status: Acute Category: Medical Code(s): R09.02 - Hypoxemia (3) Pneumonia due to 2019 novel coronavirus Status: Acute Category: Medical Code(s): U07.1 - COVID-19; J12.82 - Pneumonia due to coronavirus disease 2019 (4) Psoriasis Status: Acute Category: Medical Code(s): L40.9 - Psoriasis, unspecified (5) Fever Status: Acute Qualifiers: Fever type: unspecified Qualified Code(s): R50.9 - Fever, unspecified Category: Medical Code(s): R50.9 - Fever, unspecified (6) Elevated blood pressure reading Status: Acute Category: Medical Code(s): R03.0 - Elevated blood-pressure reading, without diagnosis of hypertension - Assessment and plan all Dx Assessment and Plan for all problems:: #COVID-19 pneumonia: #Acute hypoxic respiratory failure: 45-year-old no prior respiratory complaint no significant smoking history, unvaccinated present worsening respiratory distress on 03/17/2021 and has been receiving remdesivir and dexamethasone since then. He before this admission p resented to [facility] on 03/13/21 during which she was diagnosed with COVID-19 pneumonia. Proning protocol was initiated since admission by primary team CT PE from 03/21/2021 did not show any evidence of pulmonary edema, showed bilateral diffuse groundglass opacities. CRP elevated at 38.1. LDH at 427. Repeat CRP improving. Sputum culture from 03/17 normal respiratory mary grace. Repeat sputum culture showing gram-negative rods and moderate yeast Patient clinical status overall significantly improved, he is on 2 L nasal cannula this morning with significant trend in his symptoms. Will de-escalate Zosyn to levofloxacin or equivalent to complete a total of 7-day course. Continue oxygen supplementation to maintain O2 saturation goal of 90 to 92%, wean as tolerated. Thank you for involving pulmonary this patient care. We will follow patient in clinic in 2-4 weeks.
--- NOTE | 2021-03-26 14:43 | HMH.DCSUM ---
General - General Admission date:: 03/17/21 Discharge date: 03/26/21 HPI HPI: 45 year old male who I saw one time in the office in early 2018, presented to [facility] ER yesterday with worsening shortness of breath and fever. Patient has been ill for about 9 days now and was diagnosed with Covid-19 on 03/13/21 in the [facility] He states over the past week he has had problems with fever, headache, shortness of breath and non productive cough. He has not had a Covid-19 vaccination. He takes Skyrizi for psoriasis and his last dose was on 03/08/21. Hospital Course Hospital Course: The patient's chest x-ray showed bilateral Covid pneumonia. He was admitted and started on Covid protocol. He was on supplemental oxygen via nasal cannula at 3.5 L/min. His blood pressure was elevated and he was started on lisinopril. He became more short of breath whenever he tried to eat or walk. He had to use a nonrebreather mask after those activities due to hypoxia. His oxygen had to be increased and his sats were around 90% on 5 L per nasal cannula. A repeat chest x-ray was ordered and showed slightly worsening multifocal bilateral pneumonia. His oxygen then had to be increased to 100% nonrebreather mask to recover his sats. Pulmonology was therefore consulted. Proning protocol had already been initiated. A repeat CBC showed worsening leukocytosis. Pulmonology started the patient on Zosyn and DuoNeb's every 6 hours. He also ordered a chest CTA which showed no definite pulmonary embolus. The patient's CRP was elevated as was his LDH. His blood cultures returned negative. His sputum cultures were still pending. He did begin improving and his supplemental oxygen was weaned down to 4 L/min, but this had to be increased frequently to 6 L/min. His CRP did begin improving. By 03/26/2021 he felt better and wanted to go home. He had been able to be weaned down to oxygen at 2 L/min via nasal cannula. His repeat sputum cultures were still pending. Pulmonology felt he had significantly improved and could be discharged on Levaquin for a total of 7 more days. He would need continued oxygen supplementation and could follow-up in the pulmonology clinic in 2 to 4 weeks. Of note, the patient's sputum is growing moderate yeast and moderate gram-negative rods. His final sputum culture has not returned. Objective Vital signs: Temp Pulse Resp BP Pulse Ox 97.8 F 65 18 112/66 96 03/26/21 11:43 03/26/21 11:43 03/26/21 11:43 03/26/21 11:43 03/26/21 11:43 Narrative: - Constitutional no acute distress - *Routine HEENT Exam Head: Present: normocephalic Eye: Present: EOMI, PERRL ENT: Present: mucous membranes moist - *Routine Neck Exam Present: supple. Absent: lymphadenopathy - *Routine Respiratory Exam Present: CTA bilaterally - *Routine Cardiovascular Exam Present: RRR - *Routine Abdominal Exam Present: soft, normoactive bowel sounds. Absent: tenderness - *Routine Extremities Exam Absent: cyanosis, clubbing, edema - *Routine Skin Exam Present: warm. Absent: rash - *Routine Neurological Exam Present: alert, oriented X3 Results Labs on day of discharge: Labs from last 24 hours 03/26/21 04:43 Sodium 137 Potassium 4.5 Chloride 103 Carbon Dioxide 26 Anion Gap 12.5 BUN 15 Creatinine 0.70 Estimated Creat Clear 165 Estimated GFR 123 Est GFR ( Amer) 148 Glucose 101 H Calcium 8.2 L Total Bilirubin 0.4 Direct Bilirubin 0.4 Conjugated Bilirubin 0.0 Indirect Bilirubin 0.0 Unconjugated Bilirubin 0.0 AST 25 ALT 50 Alkaline Phosphatase 53 Total Protein 6.5 Albumin 3.2 L Preliminary micro results at discharge 03/23/21 08:00 Sputum Culture - Preliminary Sputum - Expectorated Sputum Gram Negative Rods DS: Diagnosis - Discharge Diagnosis (1) COVID-19 in immunocompromised patient Status: Acute (2) Hypoxia Status: Acute (3) Pneumonia due to 2019 novel c
== END 2021-03-26 13:30 | disposition home or self-care (01) | DRG 177 ==
LOC: ER 19:17 → ICU 03-18 07:18
PROVIDERS: Internal Medicine Pulmonary Disease; Admitting Provider Family Medicine; Emergency Provider Emergency Medicine; PCP Family Medicine; Visit Provider Family Medicine
DX: U07.1 COVID-19 (principal); J12.82 Pneumonia due to coronavirus disease 2019; J96.01 Acute respiratory failure with hypoxia; D84.9 Immunodeficiency, unspecified; L40.9 Psoriasis, unspecified
CPT/HCPCS: 71045; 71275; 80048; 80053; 80076; 83605; 83615; 83880; 85007; 85025; 85378; 86140; 87040; 87070; 87077; 87186; 87205; 93005; 94760; 94761; 96365; 96375; 99283; J2543; Q9967

== ENCOUNTER → 2021-06-10 08:39 | Outpatient (CLI) | payer OTHER, SELFPAY ==
[2021-06-10 10:24] LABS: Microalbumin/Creatinine Ratio 13.8
[2021-06-10 10:26] LABS: Creatinine,Urine Random 147 mg/dL (Not Estab.)
[2021-06-10 11:13] LABS: Chol/HDL Ratio 7.6 (1-3.5); Cholesterol 228 mg/dl (140-200); HDL Cholesterol 30 mg/dl (40-60); Triglycerides 191 mg/dl (30-150); Uric Acid 7.1 mg/dl (3.5-8.5); VLDL Cholesterol 38 mg/dL (0-40)
[2021-06-10 11:25] LABS: Direct LDL Cholesterol 142.02 mg/dL (100-129)
[2021-06-10 11:44] LABS: Thyroid Stimulating Hormone 1.31 uIU/mL (0.465-4.68)
[2021-06-11 08:40] LABS: Hemoglobin 15.7 g/dL (14.1-18.0); Red Blood Count 5.33 M/mm3 (4.60-6.20); White Blood Count 7.2 K/mm3 (4.8-10.8)
[2021-06-11 08:41] LABS: Eosinophils % 3.3 % (0.1-12.0); Hematocrit 46.8 % (42.0-52.0); Lymphocytes % 41.3 % (10-50); Mean Corpuscular HGB Conc 33.5 g/dL (31.8-35.4); Mean Corpuscular Hemoglobin 29.4 pg (27.0-31.2); Mean Corpuscular Volume 87.9 fl (80-94); Mean Platelet Volume 8.2 fl (7.4-10.4); Monocytes % 5.7 % (1.7-9.3); Neutrophils # 3.5 K/mm3 (1.8-7.8); Neutrophils % 48.6 % (37.0-80.0); Platelet Count 302 K/mm3 (142-424); Red Cell Distribution Width 13.9 % (11.5-17.5)
[2021-06-11 08:42] LABS: Basophils # 0.1 K/mm3 (0-0.2); Eosinophils # 0.2 K/mm3 (0.0-0.4); Monocytes # 0.4 K/mm3 (0.1-1.0)
[2021-06-11 11:15] LABS: Sodium 141 mmol/L (136-145)
[2021-06-11 11:16] LABS: Alanine Aminotransferase 23 U/L (12-78); Aspartate Amino Transferase 24 U/L (17-59); Bilirubin,Total 0.3 mg/dl (0.2-1.3); Blood Urea Nitrogen 9 mg/dl (9-20); Calcium 9.4 mg/dl (8.4-10.2); Carbon Dioxide 27 mmol/L (22.0-30.0); Chloride 106 mmol/L (98-107); Estimated Glomerular Filt Rate 123 ml/min (>60); GFR (African American) 148 ML/MIN (>60); Glucose 100 mg/dl (74-100)
[2021-06-11 11:17] LABS: Albumin Level 4.1 g/dl (3.5-5.0); Albumin/Globulin Ratio 1.2 (1.1-1.8); Alkaline Phosphatase 54 U/L (38-126); Globulin 3.3 g/dL (1.3-3.2); Total Protein,Serum 7.4 g/dl (6.3-8.2)
== END ==
PROVIDERS: PCP Family Medicine; Referring Provider Physician Assistant; Visit Provider Family Medicine
DX: I10 Essential (primary) hypertension (principal); L40.0 Psoriasis vulgaris; Z79.899 Other long term (current) drug therapy; Z92.25 Personal history of immunosuppression therapy
CPT/HCPCS: 36415; 80053; 80061; 82043; 82570; 84443; 84550; 85025

== ENCOUNTER → 2021-11-28 15:58 | Outpatient (CLI) | payer OTHER, SELFPAY ==
[2021-12-01 20:08] LABS: QuantiFERON-TB Gold Plus Negative (Negative)
== END ==
LOC: LAB 16:00
PROVIDERS: Visit Provider Physician Assistant
DX: L40.0 Psoriasis vulgaris (principal); Z79.899 Other long term (current) drug therapy; Z92.25 Personal history of immunosuppression therapy
CPT/HCPCS: 36415; 86480

== ENCOUNTER → 2022-10-18 08:45 | Outpatient (CLI) | payer OTHER, SELFPAY ==
[2022-10-18 09:20] LABS: Basophils # 0.2 K/mm3 (0-0.2); Basophils % 2.2 % (0.1-2.0); Eosinophils # 0.2 K/mm3 (0.0-0.4); Eosinophils % 2.8 % (0.1-12.0); Hematocrit 48.1 % (42.0-52.0); Hemoglobin 15.7 g/dL (14.1-18.0); Lymphocytes # 2.4 K/mm3 (0.7-4.5); Mean Corpuscular HGB Conc 32.7 g/dL (31.8-35.4); Mean Corpuscular Hemoglobin 28.9 pg (27.0-31.2); Mean Corpuscular Volume 88.4 fl (80-94); Mean Platelet Volume 7.4 fl (7.4-10.4); Monocytes # 0.5 K/mm3 (0.1-1.0); Monocytes % 6.8 % (1.7-9.3); Neutrophils % 55.3 % (37.0-80.0); Platelet Count 278 K/mm3 (142-424); Red Blood Count 5.45 M/mm3 (4.60-6.20); Red Cell Distribution Width 13.5 % (11.5-17.5); White Blood Count 7.2 K/mm3 (4.8-10.8)
[2022-10-18 10:05] LABS: Chloride 106 mmol/L (98-107); Potassium 4.9 mmoL/L (3.5-5.1); Sodium 141 mmol/L (136-145)
[2022-10-18 10:08] LABS: Alanine Aminotransferase 26 U/L (12-78); Albumin Level 4.3 g/dl (3.5-5.0); Albumin/Globulin Ratio 1.4 (1.1-1.8); Alkaline Phosphatase 67 U/L (38-126); Anion Gap 10.9 mEq/L (5-15); Aspartate Amino Transferase 35 U/L (17-59); Bilirubin,Total 0.7 mg/dl (0.2-1.3); Blood Urea Nitrogen 14 mg/dl (9-20); Carbon Dioxide 29 mmol/L (22.0-30.0); Cholesterol 215 mg/dl (140-200); Estimated Glomerular Filt Rate 81 ml/min (>60); GFR (African American) 98 ML/MIN (>60); Glucose 103 mg/dl (74-100); Total Protein,Serum 7.3 g/dl (6.3-8.2); Triglycerides 110 mg/dl (30-150); VLDL Cholesterol 22 mg/dL (0-40)
[2022-10-18 10:09] LABS: Chol/HDL Ratio 6.3 (1-3.5); HDL Cholesterol 34 mg/dl (40-60)
[2022-10-18 10:20] LABS: Direct LDL Cholesterol 150.61 mg/dL (100-129)
[2022-10-18 10:40] LABS: Prostate Specific Ag Screen 1.2 ng/ml (0.0-4.0)
[2022-10-22 15:52] LABS: QuantiFERON-TB Gold Plus Negative (Negative)
== END ==
LOC: LAB 08:47
PROVIDERS: PCP Physician Assistant; Visit Provider Physician Assistant
DX: I10 Essential (primary) hypertension (principal); E78.2 Mixed hyperlipidemia; L40.0 Psoriasis vulgaris; Z79.899 Other long term (current) drug therapy; Z12.5 Encounter for screening for malignant neoplasm of prostate
CPT/HCPCS: 36415; 80053; 80061; 85025; 86480; G0103

== ENCOUNTER 2023-11-11 08:05 | Outpatient (CLI) | payer OTHER, SELFPAY ==
[2023-11-11 09:09] LABS: Basophils # 0.1 K/mm3 (0-0.2); Basophils % 1.1 % (0.1-2.0); Eosinophils # 0.3 K/mm3 (0.0-0.4); Eosinophils % 3.1 % (0.1-12.0); Hematocrit 46.3 % (42.0-52.0); Hemoglobin 15.4 g/dL (14.1-18.0); Lymphocytes # 2.7 K/mm3 (0.7-4.5); Lymphocytes % 33.1 % (10-50); Mean Corpuscular HGB Conc 33.4 g/dL (31.8-35.4); Mean Corpuscular Hemoglobin 29.7 pg (27.0-31.2); Mean Corpuscular Volume 89.2 fl (80-94); Mean Platelet Volume 7.9 fl (7.4-10.4); Monocytes # 0.4 K/mm3 (0.1-1.0); Monocytes % 4.9 % (1.7-9.3); Neutrophils # 4.7 K/mm3 (1.8-7.8); Neutrophils % 57.8 % (37.0-80.0); Platelet Count 248 K/mm3 (142-424); Red Blood Count 5.19 M/mm3 (4.60-6.20); Red Cell Distribution Width 13.3 % (11.5-17.5); White Blood Count 8.1 K/mm3 (4.8-10.8)
[2023-11-11 09:40] LABS: Chloride 109 mmol/L (98-107); Potassium 4.4 mmoL/L (3.5-5.1); Sodium 139 mmol/L (136-145)
[2023-11-11 09:43] LABS: Alanine Aminotransferase 25 U/L (12-78); Albumin Level 3.9 g/dl (3.5-5.0); Albumin/Globulin Ratio 1.4 (1.1-1.8); Alkaline Phosphatase 71 U/L (38-126); Anion Gap 8.4 mEq/L (5-15); Aspartate Amino Transferase 30 U/L (17-59); Bilirubin,Total 0.3 mg/dl (0.2-1.3); Blood Urea Nitrogen 13 mg/dl (9-20); Calcium 9.2 mg/dl (8.4-10.2); Carbon Dioxide 26 mmol/L (22.0-30.0); Estimated Glomerular Filt Rate 104 ml/min (>60); GFR (African American) 125 ML/MIN (>60); Globulin 2.8 g/dL (1.3-3.2); Glucose 107 mg/dl (74-100); Total Protein,Serum 6.7 g/dl (6.3-8.2)
[2023-11-11 09:43] LABS: Chol/HDL Ratio 5.3 (1-3.5); Cholesterol 205 mg/dl (140-200); HDL Cholesterol 39 mg/dl (40-60); Triglycerides 128 mg/dl (30-150); VLDL Cholesterol 26 mg/dL (0-40)
[2023-11-11 10:15] LABS: Thyroid Stimulating Hormone 1.85 uIU/mL (0.465-4.68)
[2023-11-11 10:32] LABS: Creatinine,Urine Random 168 mg/dL (Not Estab.)
[2023-11-11 10:36] LABS: Microalbumin/Creatinine Ratio 6.6
[2023-11-13 21:08] LABS: QuantiFERON-TB Gold Plus Negative (Negative)
== END 2023-11-11 23:59 ==
PROVIDERS: PCP Family Medicine; Visit Provider Physician Assistant
DX: L40.0 Psoriasis vulgaris (principal); Z79.899 Other long term (current) drug therapy; E78.2 Mixed hyperlipidemia; I10 Essential (primary) hypertension
CPT/HCPCS: 36415; 80053; 80061; 82043; 82570; 84443; 85025; 86480

== ENCOUNTER 2024-07-05 16:52 | Outpatient (CLI) | payer OTHER, SELFPAY ==
[2024-07-05 17:09] LABS: Basophils # 0.1 K/mm3 (0-0.2); Basophils % 0.8 % (0.1-2.0); Eosinophils # 0.3 K/mm3 (0.0-0.4); Eosinophils % 3.2 % (0.1-12.0); Hematocrit 44.6 % (42.0-52.0); Hemoglobin 15.6 g/dL (14.1-18.0); Lymphocytes # 3.1 K/mm3 (0.7-4.5); Lymphocytes % 35.8 % (10-50); Mean Corpuscular Hemoglobin 29.7 pg (27.0-31.2); Mean Corpuscular Volume 84.7 fl (80-94); Mean Platelet Volume 7.3 fl (7.4-10.4); Monocytes # 0.5 K/mm3 (0.1-1.0); Monocytes % 6.2 % (1.7-9.3); Neutrophils # 4.6 K/mm3 (1.8-7.8); Neutrophils % 53.9 % (37.0-80.0); Platelet Count 277 K/mm3 (142-424); Red Blood Count 5.26 M/mm3 (4.60-6.20); Red Cell Distribution Width 13.2 % (11.5-17.5); White Blood Count 8.5 K/mm3 (4.8-10.8)
[2024-07-05 17:32] LABS: Chloride 106 mmol/L (98-107); Sodium 139 mmol/L (136-145)
[2024-07-05 17:33] LABS: Potassium 3.8 mmoL/L (3.5-5.1)
[2024-07-05 17:35] LABS: Alanine Aminotransferase 30 U/L (12-78); Albumin/Globulin Ratio 1.2 (1.1-1.8); Alkaline Phosphatase 56 U/L (38-126); Anion Gap 10.8 mEq/L (5-15); Aspartate Amino Transferase 31 U/L (17-59); Bilirubin,Total 0.4 mg/dl (0.2-1.3); Blood Urea Nitrogen 12 mg/dl (9-20); Carbon Dioxide 26 mmol/L (22.0-30.0); Estimated Glomerular Filt Rate 104 ml/min (>60); GFR (African American) 125 ML/MIN (>60); Globulin 3.3 g/dL (1.3-3.2); Glucose 157 mg/dl (74-100); Total Protein,Serum 7.3 g/dl (6.3-8.2)
== END 2024-07-05 23:59 | disposition home or self-care (01) ==
LOC: LAB 16:54
PROVIDERS: PCP Family Medicine; Visit Provider Physician Assistant
DX: Z79.899 Other long term (current) drug therapy (principal)
CPT/HCPCS: 36415; 80053; 85025

== ENCOUNTER → 2024-10-06 06:37 | Outpatient (CLI) | payer OTHER, SELFPAY | LOC: SL 06:38 | PROVIDERS: PCP Family Medicine; Visit Provider Family Medicine | DX: I10 Essential (primary) hypertension (principal); R06.83 Snoring; E66.9 Obesity, unspecified | CPT/HCPCS: 95806 ==

== ENCOUNTER 2024-12-18 08:49 | Outpatient (CLI) | payer OTHER, SELFPAY ==
[2024-12-18 09:29] LABS: Basophils # 0.1 K/mm3 (0-0.2); Basophils % 0.8 % (0.1-2.0); Eosinophils # 0.3 Kmm3 (0.0-0.4); Eosinophils % 3.6 % (0.1-12.0); Hematocrit 42.6 % (42.0-52.0); Hemoglobin 14.6 g/dL (14.1-18.0); Immature Granulocytes # 0.04 10^3uL; Immature Granulocytes % 0.6 %; Lymphocytes # 2.5 K/mm3 (0.7-4.5); Lymphocytes % 34.4 % (10-50); Mean Corpuscular HGB Conc 34.3 g/dL (31.8-35.4); Mean Corpuscular Hemoglobin 29.1 pg (27.0-31.2); Mean Corpuscular Volume 84.9 fl (80-94); Mean Platelet Volume 9.6 fl (7.4-10.4); Monocytes # 0.6 K/mm3 (0.1-1.0); Monocytes % 8.8 % (1.7-9.3); Neutrophils # 3.8 K/mm3 (1.8-7.8); Neutrophils % 51.8 % (37.0-80.0); Nucleated Red Blood Cells # 0 10^3/uL; Nucleated Red Blood Cells % 0 %; Platelet Count 240 K/mm3 (142-424); Red Blood Count 5.02 M/mm3 (4.60-6.20); Red Cell Distribution Width 12.7 % (11.5-17.5); Red Cell Distribution Width-SD 38.7 fL; White Blood Count 7.3 K/mm3 (4.8-10.8)
[2024-12-18 09:41] LABS: Chloride 108 mmol/L (98-107)
[2024-12-18 09:42] LABS: Albumin Level 4.1 g/dl (3.5-5.0); Potassium 4.5 mmoL/L (3.5-5.1); Sodium 138 mmol/L (136-145)
[2024-12-18 09:44] LABS: Blood Urea Nitrogen 12 mg/dl (9-20); Estimated Glomerular Filt Rate 103 ml/min (>60); GFR (African American) 125 ML/MIN (>60)
[2024-12-18 09:45] LABS: Alanine Aminotransferase 28 U/L (12-78); Albumin/Globulin Ratio 1.4 (1.1-1.8); Alkaline Phosphatase 63 U/L (38-126); Anion Gap 7.5 mEq/L (5-15); Aspartate Amino Transferase 26 U/L (17-59); Bilirubin,Total 0.5 mg/dl (0.2-1.3); Carbon Dioxide 27 mmol/L (22.0-30.0); Globulin 2.9 g/dL (1.3-3.2); Glucose 112 mg/dl (74-100)
[2024-12-21 19:14] LABS: QuantiFERON-TB Gold Plus Negative (Negative)
== END 2024-12-18 23:59 | disposition home or self-care (01) ==
LOC: LAB 08:51
PROVIDERS: PCP Family Medicine; Visit Provider Physician Assistant
DX: L40.0 Psoriasis vulgaris (principal)
CPT/HCPCS: 36415; 80053; 85025; 86480